=== PATIENT | female | born 1940 | race Caucasian/White ===

== ENCOUNTER 2024-07-24 18:31 | Inpatient (IN) | payer MEDICARE ==
--- NOTE | 2024-07-24 18:53 | ED ---
Weakness HPI - General Source: patient, family, RN notes reviewed <Liseth Dickinson - Last Filed: 07/24/24 18:51> <Gio Mancilla - Last Filed: 07/25/24 21:45> - General Stated complaint: Fall,AMS Time Seen by Provider: 07/24/24 18:49 - History of Present Illness Initial comments: Quick [id number] female presents emergency department By Her Daughter and Chief Complaint of Weakness. Family States That Patient Has Been Increasingly Weak over the past Few Weeks and Has Been Experiencing Multiple Falls. Currently, Patient Is Denying Symptoms of Chest Pain, Shortness of Michelle th, Difficulty Breathing, Abdominal Pain, Headaches, Blurry or Double Vision, urinary or bowel habit changes. (Liseth Dickinson) 84-year-old female presenting for evaluation for generalized weakness. The patient's daughter and are concerned that the patient has been having repeated falls at home. They state that at this point she is so weak she cannot get herself up off the floor. Patient is unsure if she hit her head with her recent falls. No blood thinners or loss of consciousness. Denies chest pain, difficulty breathing, abdominal pain, headache, vision or hearing changes, numbness, tingling. (Gio Mancilla) - Related Data Home Medications Medication Instructions Recorded Confirmed Levothyroxine Sodium [Synthroid] 25 mcg PO DAILY 07/25/24 07/25/24 Liothyronine Sodium [Cytomel] 5 mcg PO DAILY 07/25/24 07/25/24 amLODIPine [Norvasc] 5 mg PO DAILY 07/25/24 07/25/24 Allergies Allergy/AdvReac Type Severity Reaction Status Date / Time sertraline [From Zoloft] Allergy Hallucinati Verified 07/25/24 09:01 ons Review of Systems ROS Other: All systems not noted in ROS Statement are negative. <Liseth Dickinson - Last Filed: 07/24/24 18:51> ROS Other: All systems not noted in ROS Statement are negative. <Gio Mancilla - Last Filed: 07/25/24 21:45> ROS Statement: Those systems with pertinent positive or pertinent negative responses have been documented in the HPI. General Exam <Liseth Dickinson - Last Filed: 09/13/24 18:51> Limitations: no limitations General appearance: alert, in no apparent distress Head exam: Present: atraumatic, normocephalic Eye exam: Present: normal appearance, EOMI Neck exam: Present: normal inspection. Absent: meningismus Respiratory exam: Present: normal lung sounds bilaterally. Absent: respiratory distress, wheezes, rales, rhonchi, stridor Cardiovascular Exam: Present: regular rate, normal rhythm, normal heart sounds. Absent: systolic murmur, diastolic murmur, rubs, gallop, clicks Neurological exam: Present: alert, oriented X3 Psychiatric exam: Present: normal affect, normal mood Skin exam: Present: warm, dry <Gio Mancilla - Last Filed: 07/25/24 21:45> - General Exam Comments Initial Comments: Visual Physical Exam Vital signs reviewed General: Well-appearing, nontoxic, no acute distress. Head: Normocephalic, atraumatic Eyes: PERRLA, EOMI ENT: Airway patent Chest: Nonlabored breathing Skin: No visual rash, normal skin tone Neuro: Alert and oriented 3 Musculoskeletal: No gross abnormalities (iLseth Dickinson) Course Vital Signs 07/24/24 07/24/24 07/24/24 18:58 19:22 22:02 Temperature 98.9 F Pulse Rate 94 90 94 Respiratory 16 18 18 Rate Blood Pressure 156/75 178/107 156/96 O2 Sat by Pulse 99 96 97 Oximetry 07/25/24 07/25/24 07/25/24 01:02 04:26 06:00 Temperature Pulse Rate 89 89 79 Respiratory 16 18 16 Rate Blood Pressure 160/78 162/81 153/73 O2 Sat by Pulse 97 96 95 Oximetry 07/25/24 07/25/24 07/25/24 08:00 09:00 13:12 Temperature 98.9 F Pulse Rate 87 67 59 L Respiratory 16 16 Rate Blood Pressure 157/83 150/70 129/70 O2 Sat by Pulse 97 98 98 Oximetry Medical Decision Making <Liseth Dickinson - Last Filed: 07/24/24 18:51> - Lab Data Result diagrams: 07/24/24 19:13 07/24/24 19:13 <Gio Mancilla - Last Filed: 07/25/24 21:45> - Medical Decision Making I completed the quick note portion of this chart signed Liseth Dickinson PA-C (Liseth Dickinson) Was pt. sent in by a medical professional or institution (ROSALIA Fitzpatrick, PUBLIC POLICY ANALYST, urgent care, hospital, or prison...) When possible be specific @ -No Did you speak to anyone other than the patient for history (EMS, parent, family, police, friend...)? What history was obtained from this source @ -No Did you review nursing and triage notes (agree or disagree)? Why? @ -I reviewed and agree with nursing and triage notes Were old charts reviewed (outside hosp., previous admission, EMS record, old EKG, old radiological studies, urgent care reports/EKG's, prison records)? Report findings @ -No old charts were reviewed Differential Diagnosis (chest pain, altered mental status, abdominal pain women, abdominal pain men, vaginal bleeding, weakness, fever, dyspnea, syncope, headache, dizziness, GI bleed, back pain, seizure, CVA, palpatations, mental health, musculoskeletal)? @ -MDM Differential Weakness: Hypoglycemia, shock, sepsis, hyponatremia, anemia, infection, FL, ETOH, adverse medicine reaction, overdose, stroke. ... This is not meant to be an all- inclusive list EKG interpreted by me (3pts min.). @ -EKG shows sinus rhythm with first-degree AV block. Ventricular rate 87. ND interval 216. QRS 81. QT 346. QTc 390. X-rays interpreted by me (1pt min.). @ -Chest x-ray report reads right lower lung airspace disease. However by my interpretation there does not appear to be any acute process. Comparison with old EKG shows no acute changes. CT interpreted by me (1pt min.). @ -CT shows no acute intracranial process. Nonspecific white matter changes likely secondary to chronic small vessel ischemic disease U/S interpreted by me (1pt. min.). @ -None done What testing was considered but not performed or refused? (CT, X-rays, U/S, labs)? Why? @ -None What meds were considered but not given or refused? Why? @ -None Did you discuss the management of the patient with other professionals (professionals i.e. ROSALIA Fitzpatrick, PUBLIC POLICY ANALYST, lab, RT, psych nurse, high school social science teacher, aerospace control and warning systems, teacher, water resources technical officer, family preservation caseworker)? Give summary @ -I spoke with Roberto Garcia from [facility] who accepts admission Was smoking cessation discussed for >3mins.? @ -No Was critical care preformed (if so, how long)? @ -No Were there social determinants of health that impacted care today? How? (Homelessness, low income, unemployed, alcoholism, drug addiction, transportation, low edu. Level, literacy, decrease access to med. care, fdc, rehab)? @ -No Was there de-escalation of care discussed even if they declined (Discuss DNR or withdrawal of care, Hospice)? DNR status @ -No What co-morbidities impacted this encounter? (DM, HTN, Smoking, COPD, CAD, Ca ncer, CVA, ARF, Chemo, Hep., AIDS, mental health diagnosis, sleep apnea, morbid obesity)? @ -None Was patient admitted / discharged? Hospital course, mention meds given and route, prescriptions, significant lab abnormalities, going to OR and other pertinent info. @ -84-year-old female brought in by her family with generalized weakness and repeated falls. History and physical examination are conducted. No leukocytosis or anemia. Signs of dehydration with sodium 134 lactic acid 2.1 BUN 23. Patient is receiving IV fluids. Initial potassium is 5.3, however the specimen is hemolyzed. Urine shows small blood with [address] of the brain. Chest x-ray shows no acute process on my interpretation. Lengthy discussion was had with the family. Family is concerned with the patient's seemingly declining strength. They are concerned about her repeated falls and do not feel safe bringing her home today. They are agreeable with admission for placement. Patient is agreeable to this plan. I discussed this case with my attending Dr. Jackson Undiagnosed new problem with uncertain prognosis? @ -No Drug Therapy requiring intensive monitoring for toxicity (Heparin, Nitro, Insulin, Cardizem)? @ -No Were any procedures done? @ -No Diagnosis/symptom? @ -Generalized weakness, repeated falls Acute, or Chronic, or Acute on Chronic? @ -Acute Uncomplicated (without systemic symptoms) or Complicated (systemic symptoms)? @ -Complicated Side effects of treatment? @ -No Exacerbation, Progression, or Severe Exacerbation? @ -No Poses a threat to life or bodily function? How? (Chest pain, USA, FL, pneumonia, PE, COPD, DKA, ARF, appy, cholecystitis, CVA, Diverticulitis, Homicidal, Suicidal, threat to staff... and all critical care pts) @ -Yes (Gio Mancilla) - Lab Data Lab Results 07/24/24 07/24/24 07/24/24 Range/Units 19:13 19:13 19:13 WBC 8.2 (3.8-10.6) k/uL RBC 4.46 (3.80-5.40) m/uL Hgb 14.4 (11.4-16.0) gm/dL Hct 43.3 (34.0-46.0) % MCV 97.1 (80.0-100.0) fL MCH 32.3 (25.0-35.0) pg MCHC 33.2 (31.0-37.0) g/dL RDW 11.9 (11.5-15.5) % Plt Count 243 (150-450) k/uL MPV 7.5 Neutrophils % 72 % Lymphocytes % 15 % Monocytes % 9 % Eosinophils % 1 % Basophils % 1 % Neutrophils # 5.9 (1.3-7.7) k/uL Lymphocytes # 1.2 (1.0-4.8) k/uL Monocytes # 0.8 (0-1.0) k/uL Eosinophils # 0.1 (0-0.7) k/uL Basophils # 0.1 (0-0.2) k/uL PT 10.6 (10.0-12.5) sec INR 1.0 (<1.2) APTT 24.8 (22.0-30.0) sec Sodium 134 L (137-145) mmol/L Potassium 5.3 H (3.5-5.1) mmol/L Chloride 101 (98-107) mmol/L Carbon Dioxide 21 L (22-30) mmol/L Anion Gap 12 mmol/L BUN 23 H (7-17) mg/dL Creatinine 0.59 (0.52-1.04) mg/dL Est GFR (CKD-EPI)AfAm >90 (>60 ml/min/1.73 sqM) Est GFR (CKD-EPI)NonAf 86 (>60 ml/min/1.73 sqM) Glucose 120 H (74-99) mg/dL Lactic Ac Sepsis Rflx Plasma Lactic Acid Jackson (0.7-2.0) mmol/L Calcium 10.2 (8.4-10.2) mg/dL Magnesium 1.8 (1.6-2.3) mg/dL Total Bilirubin 0.8 (0.2-1.3) mg/dL AST 60 H (14-36) U/L ALT 27 (4-34) U/L Alkaline Phosphatase 90 (38-126) U/L Troponin I (0.000-0.034) ng/mL NT-Pro-B Natriuret Pep 340 pg/mL Total Protein 6.9 (6.3-8.2) g/dL Albumin 4.3 (3.5-5.0) g/dL TSH 1.190 (0.465-4.680) mIU/L Urine Color Urine Appearance (Clear) Urine pH (5.0-8.0) Ur Specific [place] (1.001-1.035) Urine Protein (Negative) Urine Glucose (UA) (Negative) Urine Ketones (Negative) Urine Blood (Negative) Urine Nitrite (Negative) Urine Bilirubin (Negative) Urine Urobilinogen (<2.0) mg/dL Ur Leukocyte Esterase (Negative) Urine RBC (0-5) /hpf Urine WBC (0-5) /hpf Hyaline Casts (0-2) /lpf Urine Mucus (None) /hpf 07/24/24 07/24/24 07/24/24 Range/Units 19:13 19:13 20:35 WBC (3.8-10.6) k/uL RBC (3.80-5.40) m/uL Hgb (11.4-16.0) gm/dL Hct (34.0-46.0) % MCV (80.0-100.0) fL MCH (25.0-35.0) pg MCHC (31.0-37.0) g/dL RDW (11.5-15.5) % Plt Count (150-450) k/uL MPV Neutrophils % % Lymphocytes % % Monocytes % % Eosinophils % % Basophils % % Neutrophils # (1.3-7.7) k/uL Lymphocytes # (1.0-4.8) k/uL Monocytes # (0-1.0) k/uL Eosinophils # (0-0.7) k/uL Basophils # (0-0.2) k/uL PT (10.0-12.5) sec INR (<1.2) APTT (22.0-30.0) sec Sodium (137-145) mmol/L Potassium (3.5-5.1) mmol/L Chloride (98-107) mmol/L Carbon Dioxide (22-30) mmol/L Anion Gap mmol/L BUN (7-17) mg/dL Creatinine (0.52-1.04) mg/dL Est GFR (CKD-EPI)AfAm (>60 ml/min/1.73 sqM) Est GFR (CKD-EPI)NonAf (>60 ml/min/1.73 sqM) Glucose (74-99) mg/dL Lactic Ac Sepsis Rflx Y Plasma Lactic Acid Jackson 2.1 H* (0.7-2.0) mmol/L Calcium (8.4-10.2) mg/dL Magnesium (1.6-2.3) mg/dL Total Bilirubin (0.2-1.3) mg/dL AST (14-36) U/L ALT (4-34) U/L Alkaline Phosphatase (38-126) U/L Troponin I <0.012 (0.000-0.034) ng/mL NT-Pro-B Natriuret Pep pg/mL Total Protein (6.3-8.2) g/dL Albumin (3.5-5.0) g/dL TSH (0.465-4.680) mIU/L Urine Color Urine Appearance (Clear) Urine pH (5.0-8.0) Ur Specific [place] (1.001-1.035) Urine Protein (Negative) Urine Glucose (UA) (Negative) Urine Ketones (Negative) Urine Blood (Negative) Urine Nitrite (Negative) Urine Bilirubin (Negative) Urine Urobilinogen (<2.0) mg/dL Ur Leukocyte Esterase (Negative) Urine RBC (0-5) /hpf Urine WBC (0-5) /hpf Hyaline Casts (0-2) /lpf Urine Mucus (None) /hpf 07/24/24 07/24/24 Range/Units 22:28 23:31 WBC (3.8-10.6) k/uL RBC (3.80-5.40) m/uL Hgb (11.4-16.0) gm/dL Hct (34.0-46.0) % MCV (80.0-100.0) fL MCH (25.0-35.0) pg MCHC (31.0-37.0) g/dL RDW (11.5-15.5) % Plt Count (150-450) k/uL MPV Neutrophils % % Lymphocytes % % Monocytes % % Eosinophils % % Basophils % % Neutrophils # (1.3-7.7) k/uL Lymphocytes # (1.0-4.8) k/uL Monocytes # (0-1.0) k/uL Eosinophils # (0-0.7) k/uL Basophils # (0-0.2) k/uL PT (10.0-12.5) sec INR (<1.2) APTT (22.0-30.0) sec Sodium (137-145) mmol/L Potassium (3.5-5.1) mmol/L Chloride (98-107) mmol/L Carbon Dioxide (22-30) mmol/L Anion Gap mmol/L BUN (7-17) mg/dL Creatinine (0.52-1.04) mg/dL Est GFR (CKD-EPI)AfAm (>60 ml/min/1.73 sqM) Est GFR (CKD-EPI)NonAf (>60 ml/min/1.73 sqM) Glucose (74-99) mg/dL Lactic Ac Sepsis Rflx Plasma Lactic Acid Jackson 1.1 (0.7-2.0) mmol/L Calcium (8.4-10.2) mg/dL Magnesium (1.6-2.3) mg/dL Total Bilirubin (0.2-1.3) mg/dL AST (14-36) U/L ALT (4-34) U/L Alkaline Phosphatase (38-126) U/L Troponin I (0.000-0.034) ng/mL NT-Pro-B Natriuret Pep pg/mL Total Protein (6.3-8.2) g/dL Albumin (3.5-5.0) g/dL TSH (0.465-4.680) mIU/L Urine Color Light Yellow Urine Appearance Clear (Clear) Urine pH 6.0 (5.0-8.0) Ur Specific [place] 1.019 (1.001-1.035) Urine Protein Negative (Negative) Urine Glucose (UA) Negative (Negative) Urine Ketones Negative (Negative) Urine Blood Small H (Negative) Urine Nitrite Negative (Negative) Urine Bilirubin Negative (Negative) Urine Urobilinogen <2.0 (<2.0) mg/dL Ur Leukocyte Esterase Negative (Negative) Urine RBC 10 H (0-5) /hpf Urine WBC 2 (0-5) /hpf Hyaline Casts 2 (0-2) /lpf Urine Mucus Rare H (None) /hpf Disposition <Liseth Dickinson - Last Filed: 07/24/24 18:51> Time of Disposition: 23:50 <Gio Mancilla - Last Filed: 07/25/24 21:45> Clinical Impression: Generalized weakness, Frequent falls Disposition: ADMITTED IP TO THIS HOSP Condition: Fair
[2024-07-24 19:47] LABS: Basophils # (A) 0.1 k/uL (0-0.2); Basophils % (A) 1 %; Eosinophils # (A) 0.1 k/uL (0-0.7); Eosinophils % (A) 1 %; HCT 43.3 % (34.0-46.0); HGB 14.4 gm/dL (11.4-16.0); Lymphocytes # (A) 1.2 k/uL (1.0-4.8); Lymphocytes % (A) 15 %; MCH 32.3 pg (25.0-35.0); MCHC 33.2 g/dL (31.0-37.0); MCV 97.1 fL (80.0-100.0); Mean Platelet Volume 7.5; Monocytes # (A) 0.8 k/uL (0-1.0); Monocytes % (A) 9 %; Neutrophils # (A) 5.9 k/uL (1.3-7.7); Neutrophils % (A) 72 %; Platelet Count 243 k/uL (150-450); RBC 4.46 m/uL (3.80-5.40); RDW 11.9 % (11.5-15.5); WBC 8.2 k/uL (3.8-10.6)
[2024-07-24 20:07] LABS: ALT 27 U/L (4-34); African American GFR (CKD) >90 (>60 ml/min/1.73 sqM); Albumin 4.3 g/dL (3.5-5.0); Anion Gap 12 mmol/L; Blood Urea Nitrogen 23 mg/dL (7-17); Calcium 10.2 mg/dL (8.4-10.2); Carbon Dioxide 21 mmol/L (22-30); Chloride 101 mmol/L (98-107); Glucose 120 mg/dL (74-99); Non-African American GFR(CKD) 86 (>60 ml/min/1.73 sqM); Sodium 134 mmol/L (137-145); Total Bilirubin 0.8 mg/dL (0.2-1.3)
[2024-07-24 20:08] LABS: AST 60 U/L (14-36); Alkaline Phosphatase 90 U/L (38-126); Magnesium 1.8 mg/dL (1.6-2.3); Potassium 5.3 mmol/L (3.5-5.1); Total Protein 6.9 g/dL (6.3-8.2)
[2024-07-24 20:09] LABS: Partial Thromboplastin Time 24.8 sec (22.0-30.0); Prothrombin Time 10.6 sec (10.0-12.5)
[2024-07-24 20:12] LABS: NT-Pro-B-Type Natriuretic Pept 340 pg/mL
--- NOTE | 2024-07-24 21:21 | CT ---
EXAMINATION TYPE: CT brain wo con CT DLP: 2293.4 mGycm, Automated exposure control for dose reduction was used. DATE OF EXAM: 07/24/2024 9:04 PM COMPARISON: None. CLINICAL INDICATION:Female, 84 years old with history of falls, multiple episode of falling. unsteady balance with ataxia for 3 days. TECHNIQUE: Brain: Axial CT images of the brain were obtained with coronal and sagittal reformats created and rev iewed. Contrast used: None. Oral contrast used: None. FINDINGS: Brain: Extra-axial spaces: No abnormal extra-axial fluid collections. Ventricular system: Dilatation in proportion to cerebral atrophy. Cerebral parenchyma: Cerebral atrophy. No acute intraparenchymal hemorrhage or mass effect. The briceño -white junction is well differentiated. Scattered hypoattenuating areas are seen within the white mat ter. Cerebellum: Unremarkable. Mass effect: No evidence of midline shift. Intracranial vasculature: Atherosclerotic calcifications of the intracranial vessels. Soft tissues: Normal. Calvarium/osseous structures: No depressed skull fracture. Paranasal sinuses and mastoid air cells: Clear Visualized orbits: Bilateral aphakia IMPRESSION: 1. No acute intracranial process. 2. Nonspecific white matter changes, likely secondary to chronic small vessel ischemic disease.
--- NOTE | 2024-07-24 21:59 | XR ---
EXAMINATION TYPE: XR chest 2V DATE OF EXAM: 07/24/2024 8:37 PM CLINICAL INDICATION:Female, 84 years old with history of ataxia COMPARISON: Chest radiograph 12/03/2022 TECHNIQUE: XR chest 2V Frontal view of the chest. FINDINGS: The lungs are hyperinflated. There are some patchy airspace opacity seen within the right mid and low er lung. Coarse senescent changes are seen bilaterally. No pneumothorax. The cardiomediastinal silhou ette is within normal limits. No acute osseous abnormalities. IMPRESSION: Right lower lung airspace disease.
[2024-07-24 22:51] LABS: Appearance,Urine Clear (Clear); Bilirubin,Urine Negative (Negative); Blood,Urine Small (Negative); Color,Urine Light Yellow; Glucose,Urine (UA) Negative (Negative); Hyaline Casts,Urine 2 /lpf (0-2); Ketones,Urine Negative (Negative); Leukocyte Esterase,Urine Negative (Negative); Mucus,Urine Rare /hpf; Nitrite,Urine Negative (Negative); Protein,Urine Negative (Negative); RBC,Urine 10 /hpf (0-5); Specific Gravity,Urine 1.019 (1.001-1.035); Urobilinogen,Urine <2.0 mg/dL (<2.0); WBC,Urine 2 /hpf (0-5)
[2024-07-24] MEDS ORDERED: NALOXONE 0.4 MG/ML 1 ML VIAL IV PRN (23:47)
[2024-07-25] MEDS: SODIUM CHLORIDE 0.9% 1,000 ML IV STA
[2024-07-25] MEDS: SODIUM CHLORIDE 0.9% 1,000 ML IV SCH (04:00)
[2024-07-25] MEDS: amLODIPine 5 MG TAB PO SCH (12:50)
[2024-07-25] MEDS: LEVOTHYROXINE 25 MCG TAB PO SCH (12:50)
--- NOTE | 2024-07-25 16:39 | P.HPIM ---
History of Present Illness H&P Date: 07/25/24 History of present illness: 84-year-old female with past medical history significant for hypertension on Norvasc, hypothyroidism on Synthroid who was brought to the ER for generalized weakness, recurrent falls. Patient daughter and were concerned that patient was having recurrent falls at home. Patient reported that she was feeling dizzy, was unsure if she passed out. was concerned that she might have passed during 1 of those falls. Patient believes that she started to have more dizziness after patient was started on a new medication, but has been to reported that patient has not started to take the new medication yet. Patient unsure if she hit her head. Patient denied any fever, chills, productive cough, sore throat, shortness of breath, chest pain, palpitation, nausea vomiting diarrhea constipation abdominal pain dysuria urgency frequency weakness or numbness of extremities. Patient and reported poor appetite, decreased p.o. intake. In the ED patient was afebrile, heart rate 94, respiratory rate 16, blood pressure 56/75, saturating 99% on room air. CBC was unremarkable. INR 1.0. BMP showed sodium 134, potassium 5.3, BUN 23, creatinine 0.59, GFR 86. Glucose 120. Lactate initially was 2.1 came down to 1.1 after IV fluids. AST 60, ALT 27, normal bilirubin and alkaline phosphatase. Troponin negative. NT proBNP 340. UA was unremarkable. CT head negative for acute process, showed nonspecific white matter changes likely secondary to chronic small vessel ischemic disease. EKG showed normal sinus rhythm with first-degree AV block, low QRS voltage in precordial leads. REVIEW OF SYSTEMS: CONSTITUTIONAL: Malaise, poor appetite. HEENT: No recent visual problems or hearing problems. Denied any sore throat. CARDIOVASCULAR: No chest pain, orthopnea, PND, no palpitations, no syncope. PULMONARY: No shortness of breath, no cough, no hemoptysis. GASTROINTESTINAL: No diarrhea, no nausea, no vomiting, no abdominal pain. NEUROLOGICAL: No headaches, no weakness, no numbness. HEMATOLOGICAL: Denies any bleeding or petechiae. GENITOURINARY: Denies any burning micturition, frequency, or urgency. MUSCULOSKELETAL/RHEUMATOLOGICAL: Denies any joint pain, swelling, or any muscle pain. ENDOCRINE: Denies any polyuria or polydipsia. The rest of the 14-point review of systems is negative. PHYSICAL EXAMINATION: GENERAL: The patient is A&O x3, NAD HEENT: EOMI, Sclerae anicteric, dry mucous membranes Neck: Supple, Non tender, No JVD PULMONARY: Equal breath souds B/L, No wheezing, No crackles. CARDIOVASCULAR: S1, S2 present. No murmurs, rubs, or gallops. ABDOMEN: Soft, nontender, nondistended, normoactive bowel sounds. No guarding or rebound tenderness. MUSCULOSKELETAL: No edema, No cyanosis. No clubbing. Normal ROM. Intact peripheral pulses. EXTREMITIES: No cyanosis, clubbing, or pedal edema. NEUROLOGICAL: CN 2-12 grossly intact. No FND Assessment and plan: Recurrent falls: Suspected syncope: Patient brought in for recurrent falls at home. concerned that patient might have had a syncopal episode during [address] negative for acute process. Level unremarkable. Concern for dehydration Continue IV fluids Monitor vitals Start Norvasc Echocardiogram Cardiology consult Fall precautions-PT/OT consult Hypertension: Resume Norvasc Check orthostats DVT prophylaxis Subcutaneous heparin Monitor vital signs and labs Continue telemetry monitoring Labs and medication were reviewed. Continue same treatment. Resume home medication. Further recommendations as per clinical course of the patient Dictation was produced using [employer] dictation software. please excuse any grammatical, word or spelling errors. Past Medical History Past Medical History: Hyperlipidemia, Hypertension Additional Past Medical History / Comment(s): sarcoidosis History of Any Multi-Drug Resistant Organisms: None Reported Past Surgical History: Joint Replacement, Orthopedic Surgery Smoking Status: Never smoker Past Alcohol Use History: None Reported Past Drug Use History: None Reported Medications and Allergies Home Medications Medication Instructions Recorded Confirmed Type Levothyroxine Sodium [Synthroid] 25 mcg PO DAILY 07/25/24 07/25/24 History Liothyronine Sodium [Cytomel] 5 mcg PO DAILY 07/25/24 07/25/24 History amLODIPine [Norvasc] 5 mg PO DAILY 07/25/24 07/25/24 History Allergies Allergy/AdvReac Type Severity Reaction Status Date / Time sertraline [From Zoloft] Allergy Hallucinati Verified 07/25/24 09:01 ons Physical Exam Vitals: Vital Signs Temp Pulse Pulse Resp BP BP Pulse Ox 07/25/24 14:39 76 18 07/25/24 14:21 97.9 F 76 18 162/85 98 07/25/24 13:12 59 L 129/70 98 07/25/24 09:00 67 16 150/70 98 07/25/24 08:00 98.9 F 87 16 157/83 97 07/25/24 06:00 79 16 153/73 95 07/25/24 04:26 89 18 162/81 96 07/25/24 01:02 89 16 160/78 97 07/24/24 22:02 94 18 156/96 97 07/24/24 19:22 90 18 178/107 96 07/24/24 18:58 98.9 F 94 16 156/75 99 Intake and Output 07/25/24 07/25/24 07/25/24 06:59 14:59 22:59 Other: Voiding Method External Catheter Weight 65.771 kg Results CBC & Chem 7: 07/24/24 19:13 07/24/24 19:13 Labs: Abnormal Lab Results - Last 24 Hours (Table) 07/24/24 07/24/24 07/24/24 Range/Units 19:13 19:13 22:28 Sodium 134 L (137-145) mmol/L Potassium 5.3 H (3.5-5.1) mmol/L Carbon Dioxide 21 L (22-30) mmol/L BUN 23 H (7-17) mg/dL Glucose 120 H (74-99) mg/dL Plasma Lactic Acid Jackson 2.1 H* (0.7-2.0) mmol/L AST 60 H (14-36) U/L Urine Blood Small H (Negative) Urine RBC 10 H (0-5) /hpf Urine Mucus Rare H (None) /hpf Thrombosis Risk Factor Assmnt - Choose All That Apply Any of the Below Risk Factors Present?: No Other Risk Factors: Yes Each Risk Factor Represents 3 Points: Age 75 years or older Other congenital or acquired thrombophilia - If yes, enter type in comment: No Thrombosis Risk Factor Assessment Total Risk Factor Score: 3 Thrombosis Risk Factor Assessment Level: Moderate Risk
--- NOTE | 2024-07-25 17:33 | P.CNNES ---
History of Present Illness Consult date: 07/25/24 Requesting physician: Gio Mancilla Reason for Consult: Frequent falls History of Present Illness: Patient is a 84-year-old right-handed female came to the hospital, yesterday at 6:31 PM for generalized weakness and frequent falls. Patient is a good historian, states that she was started on a new prescription for mood, perhaps sertraline, and after taking 1 dose, she was walking, felt dizzy and fell. She was going up steps, and after she took the first step, she lost balance and fell backwards. The next day she took the second tablet and shortly after again became dizzy and fell. Patient states that she was reaching for the cabinet and fell into the cabinet, smashed the door into the cabinet. She did not pass out. She stopped the medication, and has not had any more falls. Both of these fal ls happened about 2 weeks ago. Her family believes that she has "no strength" and she does not stand up straight. Therefore they brought her to the hospital. Patient denies any stroke symptoms. Denies any history of neuropathy, any numbness or tingling in the feet. Denies diabetes, hypertension, never smoked, does not drink alcohol. At home she does not use any assistive device, lives with her . Vital signs arrival blood pressure 156/75, pulse 94 temperature 98.9. Blood test shows normal CBC, PT PTT, sodium 134 potassium 5.3 (specimen hemolyzed), BUN is 23 creatinine 0.59. Hepatic panel with AST 60, ALT 27. Troponin negative. TSH is normal. UA negative. EKG showed sinus rhythm with first- degree AV block. Chest x-ray showed right lower lobe lung airspace disease. CT head revealed no acute intracranial process. Nonspecific white matter changes, likely secondary to chronic small vessel ischemic disease. I personally reviewed CT head, agree with the findings. Home medications include amlodipine 5 mg, Cytomel, Synthroid. Patient denies any fever or chills, any cough or phlegm, any chest pain. No urine issues. No burning or dysuria. Patient does have droopy eyes for last 10 years. However she denies any diplopia, any slurred speech, dyspnea or dysphagia. Review of Systems As mentioned in HPI. All pertinent positives and negatives mentioned in HPI. Past Medical History Past Medical History: Hyperlipidemia, Hypertension Additional Past Medical History / Comment(s): sarcoidosis History of Any Multi-Drug Resistant Organisms: None Reported Past Surgical History: Joint Replacement, Orthopedic Surgery Smoking Status: Never smoker Past Alcohol Use History: None Reported Past Drug Use History: None Reported Medications and Allergies Home Medications Medication Instructions Recorded Confirmed Type Levothyroxine Sodium [Synthroid] 25 mcg PO DAILY 07/25/24 07/25/24 History Liothyronine Sodium [Cytomel] 5 mcg PO DAILY 07/25/24 07/25/24 History amLODIPine [Norvasc] 5 mg PO DAILY 07/25/24 07/25/24 History Allergies Allergy/AdvReac Type Severity Reaction Status Date / Time sertraline [From Zoloft] Allergy Hallucinati Verified 07/25/24 09:01 ons Physical Examination - Vital Signs Vital Signs: Vital Signs Temp Pulse Pulse Resp BP BP Pulse Ox 07/25/24 14:21 97.9 F 76 18 162/85 98 07/25/24 13:12 59 L 129/70 98 07/25/24 09:00 67 16 150/70 98 07/25/24 08:00 98.9 F 87 16 157/83 97 07/25/24 06:00 79 16 153/73 95 07/25/24 04:26 89 18 162/81 96 07/25/24 01:02 89 16 160/78 97 07/24/24 22:02 94 18 156/96 97 07/24/24 19:22 90 18 178/107 96 07/24/24 18:58 98.9 F 94 16 156/75 99 Intake and Output 07/25/24 07/25/24 07/25/24 06:59 14:59 22:59 Other: Weight 65.771 kg Patient is an elderly female, very pleasant, in no acute distress. Patient is alert awake oriented to time place and person. Patient knows it is 07/25/2024 and that she is in [facility] in [facility] in [place]. Speech and language functions are normal. Patient can name and repeat very well. No aphasia or dysarthria. Attention, concentration and fund of knowledge is adequate. On cranial nerve examination, pupils are equal, round and reacting to light, visual garcia are full on confrontation, with no neglect on double simultaneous stimulation. Extraocular muscles are intact with no nystagmus. Patient does have mild ptosis, right more than left. However this is chronic. Face is symmetric, tongue protrudes to the midline. Palatal elevation and sensation normal, hearing and shoulder shrug normal, facial sensation normal. On muscle strength testing, there is no pronator drift and the strength is normal in arms and legs distally and proximally. Right shoulder not checked because of severe arthritis. Deep tendon reflexes are symmetric 1+ at biceps, 1 brachioradialis, 1 at the knees, 2 ankles and plantars downgoing bilaterally. Sensory to touch is equal with no neglect on double simultaneous stimulation. Cerebellar function showed no ataxia for [id number] testing. No dysdiadochokinesia. No ataxia for [id number]-sk-[id number] testing on either side. Tone and bulk of muscles normal. Gait testing was attempted. However patient has Huitron's catheter, therefore she could not walk. She was able to stand without any problem. She does have issues with the right shoulder therefore difficulty lifting herself up. On general examination, there is no carotid bruit or murmur, S1-S2 audible. Chest is clear on consultation. Abdomen is soft nontender. No organomegaly, bowel sounds present. Peripheral pulses are present. No peripheral edema. Results - Laboratory Findings CBC and BMP: 07/24/24 19:13 07/24/24 19:13 Abnormal Lab Findings: Abnormal Labs 07/24/24 07/24/24 07/24/24 19:13 19:13 22:28 Sodium 134 L Potassium 5.3 H Carbon Dioxide 21 L BUN 23 H Glucose 120 H Plasma Lactic Acid Jackson 2.1 H* AST 60 H Urine Blood Small H Urine RBC 10 H Urine Mucus Rare H Assessment and Plan Assessment: * Status post fall times twice, likely due to side effect of medication. Mervat mason states that she was started on some mood stabilizer 2 weeks ago, and after taking 2 doses, she fell on 2 consecutive days after taking the medication. No subsequent falls since then. Patient's examination is nonfocal. Her muscle strength is normal. * Right shoulder pain, likely due to arthritis. Rule out rotator cuff tear. * Hypertension * Hyperlipidemia Plan: * Patient's falls were related to adverse effect of antidepressant that she took couple weeks ago. No subsequent falls. * Patient's muscle strength appears normal, and exam is nonfocal. * Patient does have right shoulder pain, rule out rotator cuff tear. May need orthopedics surgery consultation. * Check B12, folate. TSH is normal. * PT, OT evaluate gait. * Neurology will follow. Thank you for the consult.
[2024-07-25] MEDS: HEPARIN SODIUM,PORCINE 5,000 UNIT/ML 1 ML VIAL SQ SCH (20:06)
[2024-07-26 09:29] LABS: Carbon Dioxide 21.5 mmol/L (21.6-31.8); Chloride 103 mmol/L (96-109); Glucose 96 mg/dL (70-110); Magnesium 1.7 mg/dL (1.5-2.4); Potassium 4.2 mmol/L (3.5-5.5); Sodium 135 mmol/L (135-145)
[2024-07-26 09:31] LABS: Basophils # (A) 0.07 X 10*3/uL (0.00-0.10); Basophils % (A) 0.9 %; Eosinophils # (A) 0.38 X 10*3/uL (0.04-0.35); Eosinophils % (A) 5.1 %; HCT 40.8 % (37.2-46.3); HGB 13.9 g/dL (12.0-15.0); Lymphocytes # (A) 1.92 X 10*3/uL (0.90-5.00); Lymphocytes % (A) 25.9 %; MCH 32.9 pg (27.0-32.0); MCHC 34.1 g/dL (32.0-37.0); MCV 96.7 FL (80.0-97.0); Mean Platelet Volume 10.2 FL (9.5-12.2); Monocytes # (A) 1.16 X 10*3/uL (0.20-1.00); Monocytes % (A) 15.6 %; NRBC Per 100 WBC 0 X 10*3/uL (0.00-0.01); Neutrophils # (A) 3.88 X 10*3/uL (1.80-7.70); Neutrophils % (A) 52.4 %; Platelet Count 209 X 10*3/uL (140-440); RBC 4.22 X 10*6/uL (4.10-5.20); WBC 7.42 X 10*3/uL (4.50-10.00)
--- NOTE | 2024-07-26 10:19 | XR ---
EXAMINATION TYPE: XR shoulder complete 3 views RT DATE OF EXAM: 07/26/2024 Comparison: None Clinical History: 84-year-old female with Right shoulder pain, fall Findings: Severe degenerative changes clinical joint with extensive irregularity of the subchondral bone, subch ondral sclerosis, articular surface remodeling and erosion, and marginal spurring. There is truncatio n of the acromion probably due to chronic degenerative change of the AC joint as well. No acute fract ure or dislocation. Impression: 1. Severe, end-stage glenohumeral joint OA with extensive irregularity of the articular surface and a ssociated chronic [id number]-pq-[id number] remodeling/erosion. 2. Some truncation of the AC joint probably on a chronic degenerative basis as well. [facility], , 07/26/2024 10:16 AM
--- NOTE | 2024-07-26 11:23 | P.CRDCN ---
History of Present Illness Consult date: 07/26/24 History of present illness: The patient is a pleasant 82-year-old female patient with a past medical history significant for hypertension was brought by her family to the hospital because of progressive weakness. The patient stated that for the last several weeks she has been feeling overall weak but she has not been eating and drinking well. No specific symptoms of any chest pain or chest discomfort or shortness of breath or dizziness or lightheadedness or any presyncope or syncope she fell but she did not lose her consciousness and clearly she did not have any syncope. For that reason her family brought her to the emergency department for further evaluation where she underwent an EKG and that showed sinus mechanism with poor R wave progression/Q waves anteriorly and the blood work with the first set of troponin came in to be unremarkable. Chest x-ray did not show any acute abnormalities. The blood work overall including CBC and BMP came in to be unr emarkable. No history of coronary artery disease or congestive heart failure or cardiac arrhythmia. CT scan of the brain did not show any acute abnormalities as well. The physical examination is remarkable for regular rhythm with clear breathing sounds bilaterally and no carotid bruit and no edema was noted Assessment Generalized weakness and fatigue Hypertension Plan Orthostatic hypotension was ruled out Continue the current medical regimen Follow-up with the second set of serial cardiac enzymes Obtain an echocardiogram with Doppler Follow-up with the patient Past Medical History Past Medical History: Hyperlipidemia, Hypertension Additional Past Medical History / Comment(s): sarcoidosis History of Any Multi-Drug Resistant Organisms: None Reported Past Surgical History: Joint Replacement, Orthopedic Surgery Smoking Status: Never smoker Past Alcohol Use History: None Reported Past Drug Use History: None Reported Medications and Allergies Home Medications Medication Instructions Recorded Confirmed Type Levothyroxine Sodium [Synthroid] 25 mcg PO DAILY 07/25/24 07/25/24 History Liothyronine Sodium [Cytomel] 5 mcg PO DAILY 07/25/24 07/25/24 History amLODIPine [Norvasc] 5 mg PO DAILY 07/25/24 07/25/24 History Allergies Allergy/AdvReac Type Severity Reaction Status Date / Time sertraline [From Zoloft] Allergy Hallucinati Verified 07/25/24 09:01 ons Physical Exam Vitals: Vital Signs Temp Pulse Pulse Resp BP BP BP 07/26/24 10:52 116/69 07/26/24 08:00 84 16 07/26/24 07:00 97.7 F 84 16 07/26/24 02:47 98.7 F 82 16 07/25/24 19:04 97.5 F L 76 18 143/75 07/25/24 16:40 98.0 F 76 17 151/79 149/79 07/25/24 14:39 76 18 07/25/24 14:21 97.9 F 76 18 07/25/24 13:12 59 L 129/70 BP BP BP Pulse Ox 07/26/24 10:52 07/26/24 08:00 07/26/24 07:00 198/79 96 07/26/24 02:47 143/78 98 07/25/24 19:04 93 L 07/25/24 16:40 114/66 97 07/25/24 14:39 07/25/24 14:21 162/85 98 07/25/24 13:12 98 Intake and Output 07/25/24 07/26/24 07/26/24 22:59 06:59 14:59 Intake Total 118 Output Total 1100 650 Balance -1100 -532 Intake: Oral 118 Output: Urine 1100 650 Other: Voiding Method External Catheter External Catheter External Catheter # Bowel Movements 0 1 Results 07/26/24 02:50 07/26/24 02:50 CBC 07/26/24 Range/Units 02:50 WBC 7.42 (4.50-10.00) X 10*3/uL RBC 4.22 (4.10-5.20) X 10*6/uL Hgb 13.9 (12.0-15.0) g/dL Hct 40.8 (37.2-46.3) % Plt Count 209 (140-440) X 10*3/uL Comprehensive Metabolic Panel 07/26/24 Range/Units 02:50 Sodium 135 (135-145) mmol/L Potassium 4.2 (3.5-5.5) mmol/L Chloride 103 (96-109) mmol/L Carbon Dioxide 21.5 L (21.6-31.8) mmol/L BUN 18.0 (9.0-27.0) mg/dL Creatinine 0.6 (0.6-1.5) mg/dL Glucose 96 (70-110) mg/dL Calcium 9.0 (8.7-10.3) mg/dL Current Medications Generic Name Dose Route Start Last Admin Trade Name Freq PRN Reason Stop Dose Admin Amlodipine Besylate 5 mg 07/25/24 11:30 07/26/24 08:01 Amlodipine 5 Mg Tab PO 5 mg DAILY ADEOLA Administration Heparin Sodium (Porcine) 5,000 unit 07/25/24 21:00 07/26/24 08:01 Heparin Sodium,Porcine 5,000 Unit/Ml 1 Ml Vial SQ 5,000 unit Q12HR ADEOLA Administration Sodium Chloride 1,000 mls @ 75 mls/hr 07/24/24 23:45 07/26/24 03:15 Saline 0.9% IV Not Given .[id number] ADEOLA Levothyroxine Sodium 25 mcg 07/25/24 11:30 07/26/24 05:34 Levothyroxine 25 Mcg Tab PO 25 mcg DAILY@0630 ADEOLA Administration Naloxone HCl 0.2 mg 07/24/24 23:47 Naloxone 0.4 Mg/Ml 1 Ml Vial IV Q2M PRN Opioid Reversal Intake and Output 07/25/24 07/26/24 07/26/24 22:59 06:59 14:59 Intake Total 118 Output Total 1100 650 Balance -1100 -532 Intake: Oral 118 Output: Urine 1100 650 Other: Voiding Method External Catheter External Catheter External Catheter # Bowel Movements 0 1 07/26/24 02:50 07/26/24 02:50
--- NOTE | 2024-07-26 15:11 | P.PN ---
Subjective Progress Note Date: 07/26/24 Interval History: 84-year-old female with past medical history significant for hypertension on Norvasc, hypothyroidism on Synthroid who was brought to the ER for generalized weakness, recurrent falls. Patient daughter and were concerned that patient was having recurrent falls at home. Patient reported that she was feeling dizzy, was unsure if she passed out. was concerned that she might have passed during 1 of those falls. Patient believes that she started to have more dizziness after patient was started on a new medication, but has been to reported that patient has not started to take the new medication yet. Patient unsure if she hit her head. Patient denied any fever, chills, productive cough, sore throat, shortness of breath, chest pain, palpitation, nausea vomiting diarrhea constipation abdominal pain dysuria urgency frequency weakness or numbness of extremities. Patient and reported poor appetite, decreased p.o. intake. In the ED patient was afebrile, heart rate 94, respiratory rate 16, blood pressure 56/75, saturating 99% on room air. CBC was unremarkable. INR 1.0. BMP showed sodium 134, potassium 5.3, BUN 23, creatinine 0.59, GFR 86. Glucose 120. Lactate initially was 2.1 came down to 1.1 after IV fluids. AST 60, ALT 27, normal bilirubin and alkaline phosphatase. Troponin negative. NT proBNP 340. UA was unremarkable. CT head negative for acute process, showed nonspecific white matter changes likely secondary to chronic small vessel ischemic disease. EKG showed normal sinus rhythm with first-degree AV block, low QRS voltage in precordial leads. 07/26/2024--patient was seen and examined today. Patient feeling better today. Will continue monitor with orthostatics. Cardiology consulted, recommended troponin and echocardiogram. Neurology consulted and following, recommended to check B12 folate. Fall likely related to adverse effects of antidepressants per neurology. Orthopedic consulted for right shoulder pain, x-ray right shoulder showed severe end-stage glenohumeral joint osteoarthritis with extensive irregularity of the articular surface. Recurrent falls: Suspected syncope: Patient brought in for recurrent falls at home. concerned that patient might have had a syncopal episode during [address] negative for acute process. Labs unremarkable. Concern for dehydration Continue IV fluids Monitor vitals Resume Norvasc. Echocardiogram Cardiology consulted--recommend troponin echocardiogram. Troponin negative. Fall precautions-PT/OT consult Severe right shoulder osteoarthritis: Patient complains of right shoulder pain worse with movements. X-ray showed severe end-stage glenohumeral osteoarthritis Pain control Orthopedic consult Hypertension: Resume Norvasc Check orthostats DVT prophylaxis Subcutaneous heparin Monitor vital signs and labs Continue telemetry monitoring Labs and medication were reviewed. Continue same treatment. Resume home medication. Further recommendations as per clinical course of the patient PHYSICAL EXAMINATION: GENERAL: The patient is A&O x3, NAD HEENT: EOMI, Sclerae anicteric, Moist Mucous membranes Neck: Supple, Non tender, No JVD PULMONARY: Equal breath souds B/L, No wheezing, No crackles. CARDIOVASCULAR: S1, S2 present. No murmurs, rubs, or gallops. ABDOMEN: Soft, nontender, nondistended, normoactive bowel sounds. No guarding or rebound tenderness. MUSCULOSKELETAL: No edema, No cyanosis. No clubbing. Normal ROM. Intact peripheral pulses. EXTREMITIES: No cyanosis, clubbing, or pedal edema. NEUROLOGICAL: CN 2-12 grossly intact. No FND Skin: No Rash REVIEW OF SYSTEMS: CONSTITUTIONAL: No fever or chills. CARDIOVASCULAR: No chest pain, palpitations or syncope. PULMONARY: No shortness of breath, no cough, sore throat. GASTROINTESTINAL: No nausea, vomiting, diarrhea, abdominal pain. : No Dysuria, urgency, frequency. Extremities: No edema. NEUROLOGICAL: No headaches, no weakness, or numbness Dictation was produced using [employer] dictation software. please excuse any grammatical, word or spelling errors. Objective - Vital Signs Vital signs: Vital Signs Temp 97.9 F 07/26/24 14:34 Pulse 80 07/26/24 14:34 Resp 17 07/26/24 14:34 BP 126/73 07/26/24 14:34 Pulse Ox 96 07/26/24 14:34 FiO2 Intake & Output 07/25/24 07/26/24 07/26/24 18:59 06:59 18:59 Intake Total 236 Output Total 1100 650 Balance -1100 -414 Weight 65.771 kg Intake: Oral 236 Output: Urine 1100 650 Other: Voiding Method External Catheter External Catheter External Catheter # Bowel Movements 0 1 - Labs CBC & Chem 7: 07/26/24 02:50 07/26/24 02:50 Labs: Abnormal Lab Results - Last 24 Hours (Table) 07/24/24 07/24/24 07/26/24 Range/Units 19:13 19:13 02:50 MCH 32.9 H (27.0-32.0) pg Monocytes # 1.16 H (0.20-1.00) X 10*3/uL Eosinophils # 0.38 H (0.04-0.35) X 10*3/uL Carbon Dioxide (21.6-31.8) mmol/L BUN/Creatinine Ratio (12.00-20.00) Ratio Vitamin B12 3508.0 H (200.0-944.0) pg/mL Folate 38.70 H (4.40-31.00) ng/mL 07/26/24 Range/Units 02:50 MCH (27.0-32.0) pg Monocytes # (0.20-1.00) X 10*3/uL Eosinophils # (0.04-0.35) X 10*3/uL Carbon Dioxide 21.5 L (21.6-31.8) mmol/L BUN/Creatinine Ratio 30.00 H (12.00-20.00) Ratio Vitamin B12 (200.0-944.0) pg/mL Folate (4.40-31.00) ng/mL
--- NOTE | 2024-07-27 11:25 | P.CNOR ---
History of Present Illness - HPI Consult date: 07/27/24 History of present illness: This is an 84-year-old female who is admitted for frequent falls and generalized weakness. Orthopedics is consulted due to chronic right shoulder pain. Patient is seen and evaluated at bedside today. Patient states that she has had right shoulder pain for many years and denies any recent injury to the right shoulder. Patient states that she has limited motion of the right upper extremity along with occasional weakness of the right hand. Patient states that she may have had previous right shoulder surgery but this was many years ago and she does not quite recall. Patient's past medical history is significant for hypertension, hyperlipidemia and hypothyroidism. Patient denies any fever/chills, chest pain, shortness breath, abdominal pain, numbness, or tingling. Review of Systems See HPI. Past Medical History Past Medical History: Hyperlipidemia, Hypertension Additional Past Medical History / Comment(s): sarcoidosis History of Any Multi-Drug Resistant Organisms: None Reported Past Surgical History: Joint Replacement, Orthopedic Surgery Smoking Status: Never smoker Past Alcohol Use History: None Reported Past Drug Use History: None Reported Medications and Allergies Home Medications Medication Instructions Recorded Confirmed Type Levothyroxine Sodium [Synthroid] 25 mcg PO DAILY 07/25/24 07/25/24 History Liothyronine Sodium [Cytomel] 5 mcg PO DAILY 07/25/24 07/25/24 History amLODIPine [Norvasc] 5 mg PO DAILY 07/25/24 07/25/24 History Allergies Allergy/AdvReac Type Severity Reaction Status Date / Time sertraline [From Zoloft] Allergy Hallucinati Verified 07/25/24 09:01 ons Physical Examination On exam patient is resting comfortably in bed in no acute distress. Patient is alert and oriented 3. Right shoulder: There is crepitus with motion. Patient has limited active and passive elevation of the right upper extremity to less than shoulder height. There is no swelling or erythema. Skin is intact. There are several small healed surgical scars over the right shoulder. The right upper extremity is warm and well-perfused. Sensation intact. Neurovascular status and circulatory status are intact. Results An x-ray report of the right shoulder dated 07/26/2024 show: 1. Severe end-stage glenohumeral joint OA with extensive irregularity of the articular surface and associated chronic [id number] remodeling/erosion. 2. Some truncation of the AC joint probably on a chronic degenerative basis as well. - Labs Labs: H & H 07/24/24 07/26/24 Range/Units 19:13 02:50 Hgb 14.4 13.9 (11.4-16.0) gm/dL Hct 43.3 40.8 (34.0-46.0) % Coagulation 07/24/24 Range/Units 19:13 INR 1.0 (<1.2) Result Diagrams: 07/26/24 02:50 07/26/24 02:50 Assessment and Plan (1) Osteoarthritis of right shoulder Current Visit: Yes Status: Acute Code(s): M19.011 - PRIMARY OSTEOARTHRITIS, RIGHT SHOULDER SNOMED Code(s): 489015611912202 Plan: 1. X-rays are reviewed revealing severe glenohumeral arthritis of the right shoulder which is consistent with the patient's symptoms of right shoulder pain. Recommend pain control. 2. Discussed that there is no surgical intervention planned. Patient may follow-up on an outpatient basis.
--- NOTE | 2024-07-27 11:31 | MR ---
EXAMINATION TYPE: MR cspine/lspine wo con DATE OF EXAM: 07/27/2024 COMPARISON: None HISTORY: Abnormal gait, frequent falls CONTRAST: Performed utilizing 0 mL intravenous gadolinium contrast. TECHNIQUE: Multiplanar multiecho imaging on a 3.0 Uma magnet is performed through the cervical spin e. FINDINGS: The craniovertebral junction is normal. Vertebral body alignment is normal. C7-T1: Mild disc bulge has mild anterior thecal sac impression. No cord contact or spinal canal sten osis present. Neural foramen are patent. C6-7: Broad-based disc bulge is present greater into the right paracentral region. No cord contact or spinal canal stenosis present. Neural foramen are patent. C5-6: There is a large right paracentral disc bulge with moderate anterior thecal sac compression. Co rd contact with some mild cord deformity is present. Some mild spinal canal stenosis is present. Mode rate to severe bilateral foraminal narrowing due to uncovertebral joint hypertrophy. C4-5: No focal disc herniation or significant disc bulge is evident. No spinal canal stenosis is pres ent. There is some uncovertebral joint hypertrophy with narrowing of the right foramen. C3-4: No focal disc herniation or significant disc bulge is evident. No spinal canal stenosis or ivory ral foraminal stenosis is present. C2-3: No focal disc herniation or significant disc bulge is evident. No spinal canal stenosis or ivory ral foraminal stenosis is present. IMPRESSION: 1. Large right paracentral disc bulge C5-6 with moderate anterior thecal sac compression. This has co rd contact and some cord deformity. Mild spinal canal narrowing is present posterior to the disc bulg e. 2. Broad-based disc bulging present C5-6, C6-7 and C7-T1 without cord contact or spinal canal stenosi s. 3. Uncovertebral joint atrophy contributing to foraminal narrowing on the right at C4-5 and bilateral ly C5-6. EXAMINATION TYPE: MR cspine/lspine wo con DATE OF EXAM: 07/27/2024 COMPARISON: None HISTORY: Abnormal gait, frequent falls CONTRAST: 0 mL intravenous Gadavist. TECHNIQUE: Multiplanar, multisequence images of the lumbar spine were acquired. 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 Additional smaller Tarlov cysts ar e present posterior to S1. Postsurgical changes are posterior to the L4-L5 levels. Some magnetic susc eptibility artifact is present levels. Disc space narrowing is present diffusely L1-2 through L4-5. S ome mild Modic type I degenerative changes are L1-2. Some mild Modic type II degenerative changes may be present L2-3 L3-4. Vertebral body heights appear preserved. Cord terminates at the L1 level. L5-S1: No significant disc bulge or disc herniation. No spinal canal stenosis. Neural foramen are p atent. All facet hypertrophy is present.. L4-L5: No significant disc bulge or disc herniation. No spinal canal stenosis. No foraminal stenosi s. Mild facet hypertrophy is present with ligamentum flavum laxity. This has some flattening posteri or lateral thecal sac.. L3-L4: Minimal disc bulges anterior thecal sac contact. There is prominent facet hypertrophy and liga mentum flavum laxity with lateral canal stenosis. This is also contributing to some diffuse spinal ca nal narrowing. L2-L3: Broad-based disc bulge is anterior thecal sac flattening. No AP spinal canal stenosis present. Facet hypertrophy with ligamentum flavum laxity is posterior lateral thecal sac compression. No spi nal canal stenosis. No foraminal stenosis. L1-L2: Broad-based disc bulge with mild anterior thecal sac compression. No AP spinal canal stenosis is present. Mild omentum flavum laxity is present posterior lateral thecal sac compression. T12-L1: No significant disc bulge or disc herniation. No spinal canal stenosis. No foraminal stenos is. IMPRESSION: 1. Spinal canal stenosis due to facet hypertrophy is ligamentum flavum laxity and mild disc bulging L 3-4. 2. Milder spinal canal narrowing at L2-3 due to disc bulge and facet hypertrophy at L4-5 due to ligam entum flavum laxity is present. 3. Diffuse disc desiccation throughout the lumbar spine. Disc spacers present at L4-5. 4. Moderate type I degenerative changes L1-2. Some mild Modic type II degenerative changes may be pre sent L2-3 L3-4. [facility], , 07/27/2024 11:29 AM
--- NOTE | 2024-07-27 12:02 | P.PN ---
Subjective Progress Note Date: 07/26/24 Patient was seen for follow-up. Patient's was also present today. He informed me that patient has problems with balance going on for last 1 year, getting worse. She would be walking, and her right shoulder starts drooping down, and she starts veering to the right side and sometimes she falls. This happens more when she is tired. Patient's mentioned that on Saturday, 1 week ago, he found her sitting on the floor in the bedroom, as she had fell hit, and hit her head on the nightstand. Patient has very poor balance, if she bends down, she could fall. She gets dizzy and falls. He mentions that he took the antidepressant only for 2 days about 1-1/2 weeks ago, but her balance has continued to be a problem including her frequency of falls. She cannot walk on the grass, as she has no balance. When she gets down, she cannot get up. She scoots to get somewhere to get up. Otherwise she has no strength to get up. Patient's states that 1 day she was watering the joe and she fell. Patient denies any problem with urinary control or incontinence. Patient has reported numbness in the feet to her , but at present she denies it. She does have severe arthritis of the right shoulder. Patient has history of low back surgery in 2016. Objective - Vital Signs Vital signs: Vital Signs Temp 97.7 F 07/26/24 07:00 Pulse 84 07/26/24 08:00 Resp 16 07/26/24 08:00 BP 116/69 07/26/24 10:52 Pulse Ox 96 07/26/24 07:00 FiO2 Intake & Output 07/25/24 07/26/24 07/26/24 18:59 06:59 18:59 Intake Total 118 Output Total 1100 650 Balance -1100 -532 Weight 65.771 kg Intake: Oral 118 Output: Urine 1100 650 Other: Voiding Method External Catheter External Catheter External Catheter # Bowel Movements 0 1 - Exam Patient's mental status, speech and language functions are normal. Muscle strength again is normal in the arms and legs distally and proximally except right shoulder which is weak from arthritis/rotator cuff with a lot of pain. But still she has good strength in the right deltoid. Reflexes are symmetric, 1+ at the biceps, 1 brachioradialis, 1 at the ankles and plantars are downgoing bilaterally. No clonus. Sensory to touch is equal. Tone is completely normal with no rigidity. No tremors at rest. No bradykinesia. No parkinsonian feature. - Labs CBC & Chem 7: 07/26/24 02:50 07/26/24 02:50 Labs: Abnormal Lab Results - Last 24 Hours (Table) 07/24/24 07/24/24 07/26/24 Range/Units 19:13 19:13 02:50 MCH 32.9 H (27.0-32.0) pg Monocytes # 1.16 H (0.20-1.00) X 10*3/uL Eosinophils # 0.38 H (0.04-0.35) X 10*3/uL Carbon Dioxide (21.6-31.8) mmol/L BUN/Creatinine Ratio (12.00-20.00) Ratio Vitamin B12 3508.0 H (200.0-944.0) pg/mL Folate 38.70 H (4.40-31.00) ng/mL 07/26/24 Range/Units 02:50 MCH (27.0-32.0) pg Monocytes # (0.20-1.00) X 10*3/uL Eosinophils # (0.04-0.35) X 10*3/uL Carbon Dioxide 21.5 L (21.6-31.8) mmol/L BUN/Creatinine Ratio 30.00 H (12.00-20.00) Ratio Vitamin B12 (200.0-944.0) pg/mL Folate (4.40-31.00) ng/mL Assessment and Plan Assessment: * Status post fall times twice, likely due to side effect of medication. Patient states that she was started on some mood stabilizer 2 weeks ago, and after taking 2 doses, she fell on 2 consecutive days after taking the medication. No subsequent falls since then. Patient's examination is nonfocal. Her muscle strength is normal. * Chronic balance problem for 1 year, progressively getting worse (as per patient's report). Patient has frequent falls, and when she falls, cannot get up. Rule out spinal stenosis. No clinical evidence of Parkinson's. CT head showed no evidence of CVA. * Right shoulder pain, likely due to arthritis. Rule out rotator cuff tear. * Hypertension * Hyperlipidemia Plan: * Patient has chronic gait problem, with gait imbalance, and frequent falls. * Check MRI of the cervical and lumbar spine to rule out spinal stenosis. * Agree with orthopedic spine consultation for right shoulder pain/weakness. * B12 3508, folate 38.7. TSH 1.19. * PT, OT evaluate gait.
--- NOTE | 2024-07-28 03:40 | PN ---
PROGRESS NOTE DATE OF SERVICE: 07/27/2024 SUBJECTIVE: This is an 84-year-old woman, who was admitted with fall and syncope, also had an MRI done, which showed significant DJD and some cervical stenosis and disk bulging also. No chest pain. No palpitation. OBJECTIVE: VITAL SIGNS: Pulse is 80, blood pressure 140/70, orthostatic changes present, respirations 18. CHEST: A few scattered rhonchi and crackles. ABDOMEN: Soft. NERVOUS SYSTEM: Nonfocal. LABORATORY DATA: Reviewed. ASSESSMENT: 1. Recurrent falls and syncope. 2. 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 3. Severe right shoulder osteoarthritis. 4. Hypertension. 5. Orthostatic hypotension. RECOMMENDATIONS AND DISCUSSION: I recommend to continue current medications and continue symptomatic treatment. Otherwise, at this time, I would recommend repeat labs. PT/OT evaluation. Continue to check orthostatic vitals. Guarded prognosis. Further recommendations to follow. CHRISTI / YAN: [id number] /
[2024-07-28 08:35] LABS: Basophils # (A) 0.06 X 10*3/uL (0.00-0.10); Basophils % (A) 0.9 %; Eosinophils # (A) 0.41 X 10*3/uL (0.04-0.35); Eosinophils % (A) 6.1 %; HCT 41.7 % (37.2-46.3); Lymphocytes # (A) 1.65 X 10*3/uL (0.90-5.00); Lymphocytes % (A) 24.7 %; MCH 31.5 pg (27.0-32.0); MCHC 33.6 g/dL (32.0-37.0); MCV 93.7 FL (80.0-97.0); Mean Platelet Volume 9.9 FL (9.5-12.2); Monocytes # (A) 0.73 X 10*3/uL (0.20-1.00); Monocytes % (A) 10.9 %; NRBC Per 100 WBC 0 X 10*3/uL (0.00-0.01); Neutrophils # (A) 3.82 X 10*3/uL (1.80-7.70); Neutrophils % (A) 57.1 %; Platelet Count 241 X 10*3/uL (140-440); RBC 4.45 X 10*6/uL (4.10-5.20); RDW 11.9 % (11.5-14.5); WBC 6.69 X 10*3/uL (4.50-10.00)
[2024-07-28 08:56] LABS: ALT 22 U/L (8-44); AST 22 U/L (13-35); Albumin/Globulin Ratio 2.11 Ratio (1.60-3.17); Alkaline Phosphatase 107 U/L (41-126); BUN/Creat Ratio 28.67 Ratio (12.00-20.00); Blood Urea Nitrogen 17.2 mg/dL (9.0-27.0); Calcium 9.7 mg/dL (8.7-10.3); Carbon Dioxide 24.5 mmol/L (21.6-31.8); Chloride 102 mmol/L (96-109); Globulin 1.9 g/dL (1.6-3.3); Glucose 97 mg/dL (70-110); Potassium 4.1 mmol/L (3.5-5.5); Sodium 138 mmol/L (135-145); Total Bilirubin 0.3 mg/dL (0.3-1.2); Total Protein 5.9 g/dL (6.2-8.2)
--- NOTE | 2024-07-28 09:51 | CA ---
Transthoracic Echo Report Name: Kierra Zhao Age: 84 Gender: F : 1940 Exam Date: 07/27/2024 17:04 Exam Location: [facility] Ht (in): 66 Wt (lb): 145 Ordering Physician: Cristhian Romero MD Attending/Referring Phys: Log Preparer Nidia Moreno RDCS Procedure CPT: Indications: stroke Cardiac Hx: Technical Quality: Good Contrast 1: Agitated Saline Total Dose (mL): 8 Contrast 2: Total Dose (mL): MEASUREMENTS (Male / Female) Normal Values 2D ECHO LV Diastolic Diameter PLAX 4.8 cm 4.2 - 5.9 / 3.9 - 5.3 cm LV Systolic Diameter PLAX 2.9 cm IVS Diastolic Thickness 0.8 cm 0.6 - 1.0 / 0.6 - 0.9 cm LVPW Diastolic Thickness 1.0 cm 0.6 - 1.0 / 0.6 - 0.9 cm LV Relative Wall Thickness 0.4 RV Internal Dim ED PLAX 2.7 cm LA Systolic Diameter LX 3.0 cm 3.0 - 4.0 / 2.7 - 3.8 cm LV Diastolic Volume MOD 4C 93.8 cm??? LV Systolic Volume MOD 4C 41.0 cm??? LV Ejection Fraction MOD 4C 56.3 % LV Cardiac Index MOD 4C 2409.0 cm???/min???m??? LV Diastolic Length 4C 8.3 cm LV Systolic Length 4C 6.5 cm LV Diastolic Volume MOD 2C 68.3 cm??? LV Systolic Volume MOD 2C 26.2 cm??? LV Ejection Fraction MOD 2C 61.6 % LV Cardiac Index MOD 2C 1917.5 cm???/min???m??? LV Diastolic Length 2C 7.0 cm LV Systolic Length 2C 5.9 cm LA Volume 42.1 cm??? 18 - 58 / 22 - 52 cm??? LA Volume Index 24.0 cm???/m??? 16 - 28 cm???/m??? M-MODE Aortic Root Diameter MM 3.4 cm AV Cusp Separation MM 2.0 cm DOPPLER AV Peak Velocity 145.0 cm/s AV Peak Gradient 8.4 mmHg MV Area PHT 5.5 cm??? Mitral E Point Velocity 66.9 cm/s Mitral A Point Velocity 99.8 cm/s Mitral E to A Ratio 0.7 MV Deceleration Time 138.6 ms FINDINGS Left Ventricle Left ventricular ejection fraction is estimated at 55-60 %. Left ventricular cavity size normal. Mildly increased posterior wall thickness. Normal left ventricular wall motion. Right Ventricle Normal right ventricular size. Unable to estimate the right ventricular systolic pressure. Right Atrium Normal right atrial size. No right atrial thrombus or mass seen. Negative agitated saline bubble study for right to left shunt. Left Atrium Normal left atrial size. No left atrial thrombus or mass present. Mitral Valve Structurally normal mitral valve. No evidence for mitral valve prolapse. No mitral stenosis. Trace mitral regurgitation. Aortic Valve Trileaflet aortic valve. Thickened aortic valve without stenosis. Tricuspid Valve Structurally normal tricuspid valve. No tricuspid stenosis, regurgitation or prolapse. Pulmonic Valve Structurally normal pulmonic valve. No pulmonic regurgitation. Pericardium No pericardial or pleural effusion. Aorta Normal size aortic root and proximal ascending aorta. CONCLUSIONS Diagnosis: Stroke LVH with preserved systolic function Normal atrial size No significant valvular abnormalities no [id number] shunting on bubble study Previewed by: Dr. Carter Eddy MD (Electronically Signed) Final Date: 28 July 2024 09:49
--- NOTE | 2024-07-28 12:59 | P.PN ---
Progress Note - Text Progress Note Date: 07/28/24 The patient is seen and examined at bedside. She is accompanied by her . She is a 84-year-old pleasant female who is ambulatory in the hallways. Apparently she has been having some falls and the other day was found on the floor when her at home. She says that she slid down off of her bed and had a scooter on the floor was because she was unable to get up. She had a couple of falls couple of weeks ago after taking Zoloft. She has since stopped the Zoloft. She denies any new pain in her lower back. She denies any new pain in her lower extremities. She has some pain around her right shoulder which is being evaluated as well. She is not having changes in bowel bladder function. She is very eager to try to get home. She says that she has accommodations for home and her concurs that she can be safe at home. On exam she is alert and oriented x 3. She has a large bruise over her right arm but is stable. She has some decreased activity around her right shoulder. Her lower extremities have sustained dorsiflexion plantarflexion EHL hip flexion and knee extension intact. There is no pain with internal ex rotation of her hips. Her back is nontender to palpation range of motion. Her prior lumbar incisions are well-healed. Imaging of her lumbar spine shows prior decompression fusion L4-5 from apparent surgery approximately 16 years ago She has evidence of some central and right foraminal stenosis L3-4 with chronic degenerative changes facet arthrosis and degenerative disc disease Assessment and plan Spinal stenosis L3-4 Chronic degenerative changes lumbar spine History of prior fusion L4-5 which appears stable Recurrent falls Right shoulder pain status post fall The patient is improving her ambulation and from a spine standpoint I think it is okay for her to discharge home to be followed as an outpatient basis. She is not having any acute neurologic changes in her lower extremities and she is not complaining of pain at her back. I would not plan any acute surgical intervention for her lumbar spine at this point. She does have evidence of spinal stenosis at L3-4 and she could be a candidate for interventional pain management if she continues to have symptoms or troubles with her mobility in terms of her legs. This can be done outpatient basis. The patient has had recurrent falls. I think this is multifactorial. She does not have any acute weakness or focal neurologic deficit at her lower extremities. She does not have obvious instability at her lumbar spine. From a spine surgery standpoint is okay for her to discharge home if she is cleared with medicine.
[2024-07-28 13:16] VITALS: BP 135/82; PULSE 80; RESP 17; TEMP 97.7
--- NOTE | 2024-07-28 14:30 | P.PN ---
Subjective Progress Note Date: 07/27/24 07/27/2024: Patient was seen for a follow-up. Patient is laying in the bed. Offers no new complaints. She wants to go home. 07/26/2024: Patient was seen for follow-up. Patient's was also present today. He informed me that patient has problems with balance going on for last 1 year, getting worse. She would be walking, and her right shoulder starts drooping down, and she starts veering to the right side and sometimes she falls. This happens more when she is tired. Patient's mentioned that on Saturday, 1 week ago, he found her sitting on the floor in the bedroom, as she had fell hit, and hit her head on the nightstand. Patient has very poor balance, if she bends down, she could fall. She gets dizzy and falls. He mentions that he took the antidepressant only for 2 days about 1-1/2 weeks ago, but her balance has continued to be a problem including her frequency of falls. She cannot walk on the grass, as she has no balance. When she gets down, she cannot get up. She scoots to get somewhere to get up. Otherwise she has no strength to get up. Patient's states that 1 day she was watering the joe and she fell. Patient denies any problem with urinary control or incontinence. Patient has reported numbness in the feet to her , but at present she denies it. She does have severe arthritis of the right shoulder. Patient has history of low back surgery in 2016. Objective - Vital Signs Vital signs: Vital Signs Temp 97.4 F L 07/27/24 14:15 Pulse 82 07/27/24 14:15 Resp 17 07/27/24 14:15 BP 126/71 07/27/24 14:15 Pulse Ox 96 07/27/24 14:15 FiO2 Intake & Output 07/27/24 07/27/24 07/28/24 06:59 18:59 06:59 Intake Total 736 Output Total 400 Balance -400 736 Intake: Oral 736 Output: Urine 400 Other: Voiding Method External Catheter External Catheter # Voids 4 2 # Bowel Movements 0 0 - Exam Patient's mental status, speech and language functions are normal. Muscle strength again is normal in the arms and legs distally and proximally except right shoulder which is weak from arthritis/rotator cuff with a lot of pain. But still she has good strength in the right deltoid. Reflexes are symmetric, 1+ at the biceps, 1 brachioradialis, 1 at the ankles and plantars are downgoing bilaterally. No clonus. Sensory to touch is equal. Tone is completely normal with no rigidity. No tremors at rest. No bradykinesia. No parkinsonian feature. - Labs CBC & Chem 7: 07/28/24 03:44 07/28/24 03:44 Assessment and Plan Assessment: * Status post fall times twice, likely due to side effect of medication. Patient states that she was started on some mood stabilizer 2 weeks ago, and after taking 2 doses, she fell on 2 consecutive days after taking the medication. No subsequent falls since then. Patient's examination is nonfocal. Her muscle strength is normal. * Chronic balance problem for 1 year, progressively getting worse (as per patient's report). Patient has frequent falls, and when she falls, cannot get up. Rule out spinal stenosis. No clinical evidence of Parkinson's. CT head showed no evidence of CVA. * Right shoulder pain, likely due to arthritis. Rule out rotator cuff tear. * Hypertension * Hyperlipidemia Plan: * Patient has chronic gait problem, with gait imbalance, and frequent falls. * MRI of the cervical spine revealed large right paracentral disc bulge C5-6 with moderate anterior thecal sac compression. This has cord contact and some cord deformity. Mild spinal canal narrowing is present posterior to the disc bulge. Broad-based disc bulging present C5-6, C6-7 and C7-T1 without cord contact or spinal canal stenosis. Uncovertebral joint hypertrophy contributing to foraminal narrowing on the right at C4-5 and bilaterally C5-6. I personally reviewed MRI, and there is no significant spinal stenosis. * MRI of the lumbar spine revealed spinal canal stenosis due to facet hypert rophy, ligamentum flavum laxity and mild disc bulging at L3-4. Mild spinal canal narrowing at L2-3 due to disc bulge and facet hypertrophy at L4-5 due to ligamentum flavum laxity. Diffuse disc desiccation throughout the lumbar spine. Disc spacers present at L4-5. I personally reviewed MRI of the lumbar spine and appear there is severe spinal stenosis at L3-4 level. * Recommend orthopedic surgery reconsultation for severe lumbar spinal stenosis. * Orthopedic surgery did evaluate patient for right shoulder pain and diagnosed with osteoarthritis of the right shoulder and was recommended pain control. * B12 3508, folate 38.7. TSH 1.19. * PT, OT evaluate gait. * Neurologically clear, if cleared by orthopedic surgery. * Patient may benefit from use of 4-prong cane for gait assistance.
[2024-07-28] MEDS ORDERED: amLODIPine 5 MG TAB PO SCH (21:00)
--- NOTE | 2024-07-29 10:10 | P.DS ---
Providers Date of admission: 07/27/24 08:00 Expected date of discharge: 07/28/24 Attending physician: Elroy Conteh Consults: 07/24/24 23:47 Consult Physician Urgent Consulting Provider: Gus Villasenor Consult Reason/Comments: Frequent falls Do you want consulting provider notified?: Yes, Notify in am 07/25/24 16:39 Consult Physician Routine Consulting Provider: Luke Joiner Consult Reason/Comments: syncope Do you want consulting provider notified?: Yes 07/26/24 09:24 Consult Physician Routine Consulting Provider: Kaitlin Causey Consult Reason/Comments: Roght shoulder pain, suspect Rotator cuff tear Do you want consulting provider notified?: Yes 07/27/24 21:35 Consult Physician Routine Consulting Provider: Kaitlin Causey Consult Reason/Comments: Severe lumbar spinal stenosis, balance issues, frequent falls Do you want consulting provider notified?: Yes, Notify in am Primary care physician: Vicente Plascencia Hospital Course: Final diagnosis Spinal stenosis of the L3-4 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 Patient will follow-up with Dr. Plascencia in the outpatient setting upon discharge. Patient is to continue with outpatient follow-up with orthopedics as scheduled. Total time taken is greater than 35 minutes. Hospital course This is a 84-year-old female who was recently admitted with increased weakness and dizziness and recurrent falls with concerns of hypotension and also possible syncope. Patient was evaluated by cardiology with adjustments to medications. Patient reports she was recently started on an antidepressant by her primary care provider having worsening symptoms and stopped taking the medication. Patient does have history of previous back surgeries as was evaluated by orthopedics along with software licensing specialist Dr. Causey with no plans of immediate surgical intervention right now recommending outpatient follow-up. Patient was evaluated by physical therapy and up walking the halls with standby assistance and has been encouraged to use the cane and/or walker. Patient is extremely adamant about wanting to go home and this was discussed with neurology and patient has been cleared by consultations. Patient to keep a diary of daily blood pressure readings for follow-up. Patient reports she is looking into changing physicians and will do so in the outpatient setting. Please refer to other consultation notes for further HPI. Currently no reports of chest pain, shortness of breath, or palpitations. Patient is afebrile. No reports of nausea or vomiting and patient is tolerating diet. Patient will be discharged home today. Guarded prognosis given significant comorbidities. Physical exam: Gen: This is a 84-year-old female who is awake, alert and oriented x 3, thin built, elderly appearing HEENT: Head is atraumatic, normocephalic. Pupils equal, round. Sclerae is anicteric. NECK: Supple. No JVD. No lymphadenopathy. No thyromegaly. LUNGS: Diminished breath sounds bilaterally otherwise clear to auscultation. No wheezes or rhonchi. No intercostal retractions. HEART: S1, S2 are muffled ABDOMEN: Soft. Thin. Bowel sounds are present. No masses. No tenderness. EXTREMITIES: No pedal edema. No calf tenderness. NEUROLOGICAL: Patient is awake, alert and oriented x3. Cranial nerves 2 through 12 are grossly intact. Please refer to medication reconciliation sheet for a list of medications. The impression and plan of care has been dictated by Maricruz Sheikh, Nurse Pr actitioner as directed. Dr. Wero MD I have performed a history and examination and MDM of this patient, discussed the same with the dictator, and agree with the dictator's assessment and plan as written ,documented as a scribe. Based on total visit time, I have performed more than 50% of the visit. Patient Condition at Discharge: Good Plan - Discharge Summary Discharge Rx Participant: Yes New Discharge Prescriptions: Continue Liothyronine Sodium [Cytomel] 5 mcg PO DAILY Levothyroxine Sodium [Synthroid] 25 mcg PO DAILY Changed amLODIPine [Norvasc] 5 mg PO BID 30 Days #60 tab Discharge Medication List Levothyroxine Sodium [Synthroid] 25 mcg PO DAILY 07/25/24 [History] Liothyronine Sodium [Cytomel] 5 mcg PO DAILY 07/25/24 [History] amLODIPine [Norvasc] 5 mg PO BID 30 Days #60 tab 07/28/24 [Rx] Follow up Appointment(s)/Referral(s): Kaitlin Causey DO [Doctor of Osteopathic Medicine] - 3 Weeks Wilberto Alves DO [Doctor of Osteopathic Medicine] - As Needed Vicente Plascencia DO [Primary Care Provider] - 1-2 days Patient Instructions/Handouts: Weakness (DC) Activity/Diet/Wound Care/Special Instructions: Activity limited until follow-up Follow-up with primary care provider on discharge Follow-up with orthopedics for spine outpatient Dr. Causey Continue monitoring blood pressure and keep a diary of blood pressure readings daily and bring with you during follow-up Discharge Disposition: HOME SELF-CARE
== END 2024-07-28 13:44 | disposition home or self-care (01) | DRG 552 ==
LOC: EC 18:31 → 6NMEDSUR 23:47 → OBSVTOIN 07-27 08:00
PROVIDERS: ADMIT Hospitalist; ATTEND Hospitalist
DX: M48.02 Spinal stenosis, cervical region (principal); M48.061 Spinal stenosis, lumbar region without neurogenic claudication; R29.6 Repeated falls; M47.812 Spondylosis without myelopathy or radiculopathy, cervical region; M19.011 Primary osteoarthritis, right shoulder; Z79.890 Hormone replacement therapy; Z79.899 Other long term (current) drug therapy; Z98.1 Arthrodesis status; R55 Syncope and collapse; I44.0 Atrioventricular block, first degree; G89.29 Other chronic pain; M47.816 Spondylosis without myelopathy or radiculopathy, lumbar region; I10 Essential (primary) hypertension; E78.5 Hyperlipidemia, unspecified; E03.9 Hypothyroidism, unspecified; D86.9 Sarcoidosis, unspecified; W01.0XXA Fall on same level from slipping, tripping and stumbling without subsequent striking against object, initial encounter; Z88.8 Allergy status to other drugs, medicaments and biological substances; Z91.81 History of falling
CPT/HCPCS: 36415; 70450; 71046; 72141; 72148; 80048; 80053; 81001; 82607; 82746; 83605; 83735; 83880; 84443; 84484; 85025; 85610; 85730; 93005; 93306; 96360; 96361; 99285

== ENCOUNTER 2025-02-19 11:26 | Inpatient (IN) | payer MEDICARE ==
[2025-02-19 11:32] LABS: Glucose,Whole Blood 141 mg/dL (70-110)
[2025-02-19] MEDS: SODIUM CHLORIDE 0.9% 1,000 ML IV ONE (12:22)
[2025-02-19 12:28] LABS: Basophils # (A) 0.07 10*3/uL (0.00-0.10); Basophils % (A) 0.9 %; Eosinophils # (A) 0.04 10*3/uL (0.04-0.35); Eosinophils % (A) 0.5 %; HCT 44.9 % (37.2-46.3); HGB 15.6 g/dL (12.0-15.0); Lymphocytes # (A) 0.83 10*3/uL (0.90-5.00); Lymphocytes % (A) 10.7 %; MCH 33.2 pg (27.0-32.0); MCHC 34.7 g/dL (32.0-37.0); MCV 95.5 fL (80.0-97.0); Mean Platelet Volume 9.6 fL (9.5-12.2); Monocytes # (A) 0.48 10*3/uL (0.20-1.00); Monocytes % (A) 6.2 %; Neutrophils # (A) 6.28 10*3/uL (1.80-7.70); Neutrophils % (A) 81.2 %; Platelet Count 264 10*3/uL (140-440); RDW 12.1 % (11.5-14.5); WBC 7.74 10*3/uL (4.50-10.00)
--- NOTE | 2025-02-19 12:33 | ED ---
Weakness HPI - General Chief complaint: Weakness Stated complaint: Shoulder and Back Pain Time Seen by Provider: 02/19/25 11:43 Source: patient, RN notes reviewed Mode of arrival: ambulatory Limitations: no limitations - History of Present Illness Initial comments: This is an 84-year-old female who presents to the emergency department for weakness and confusion. Patient states that she fell 2 days ago and hurt her lower back. She was on the floor for a couple of hours because she did not have the energy to get up. Does report feeling somewhat weak. Her daughter states that she has been very disoriented and confused. States that she does not make sense when she is speaking and yesterday appeared to be slurring her words. She also advised that she is not eating. Patient states that she just does not feel like eating. Denies any nausea/vomiting or abdominal pain. Her daughter states that she has never acted like this before. MD Complaint: generalized weakness - Related Data Home Medications Medication Instructions Recorded Confirmed Levothyroxine Sodium [Synthroid] 25 mcg PO DAILY 07/25/24 02/19/25 Liothyronine Sodium [Cytomel] 5 mcg PO DAILY 07/25/24 02/19/25 Losartan Potassium [Cozaar] 100 mg PO DAILY 02/19/25 02/19/25 Meloxicam [Mobic] 15 mg PO DAILY PRN 02/19/25 02/19/25 Montelukast [Singulair] 10 mg PO DAILY 02/19/25 02/19/25 Allergies Allergy/AdvReac Type Severity Reaction Status Date / Time sertraline [From Zoloft] Allergy Hallucinati Verified 02/19/25 14:00 ons levofloxacin [From Levaquin] AdvReac Swelling Verified 02/19/25 14:00 Review of Systems ROS Statement: Those systems with pertinent positive or pertinent negative responses have been documented in the HPI. ROS Other: All systems not noted in ROS Statement are negative. Past Medical History Past Medical History: Hyperlipidemia, Hypertension Additional Past Medical History / Comment(s): sarcoidosis History of Any Multi-Drug Resistant Organisms: None Reported Past Surgical History: Joint Replacement, Orthopedic Surgery Smoking Status: Never smoker Past Alcohol Use History: None Reported Past Drug Use History: None Reported General Exam Limitations: no limitations General appearance: alert, in no apparent distress Head exam: Present: atraumatic, normocephalic, normal inspection Respiratory exam: Present: normal lung sounds bilaterally. Absent: respiratory distress, wheezes, rales, rhonchi, stridor Cardiovascular Exam: Present: regular rate, normal rhythm Neurological exam: Present: alert, oriented X3, CN II-XII intact Expanded Cerebellar function: Finger to Nose: Normal, Heel to Limon: Normal, Romberg: Normal Motor strength exam: RUE: 5, LUE: 5, RLE: 5, LLE: 5 Psychiatric exam: Present: normal affect, normal mood Skin exam: Present: warm, dry, intact, normal color. Absent: rash Course Vital Signs 02/19/25 02/19/25 02/19/25 11:29 13:40 14:04 Temperature 98.0 F Pulse Rate 86 85 92 Respiratory 17 18 18 Rate Blood Pressure 137/83 164/78 187/111 O2 Sat by Pulse 97 95 96 Oximetry 02/19/25 02/19/25 02/19/25 14:54 15:48 16:26 Temperature Pulse Rate 86 87 84 Respiratory 18 18 18 Rate Blood Pressure 192/103 161/90 154/91 O2 Sat by Pulse 97 94 L 95 Oximetry Medical Decision Making - Medical Decision Making This is an 84 year old female who presents to the emergency department for weakness. Was pt. sent in by a medical professional or institution? @ -No Did you speak to anyone other than the patient for history? @ -Her daughter provided the history of the slurring words, confusion, and not eating. Did you review nursing and triage notes? @ -Yes, and I agree, it is accurate with regards to the patient's symptoms. Were old charts reviewed? @ -No Differential Diagnosis? @ -Differential Weakness: Hypoglycemia, shock, sepsis, hyponatremia, anemia, infection, [place], ETOH, adverse medicine reaction, overdose, stroke, this is not meant to be an all-inclusive list. EKG interpreted by me (3pts min.)? @ -EKG interpreted by me demonstrating the following: Sinus rhythm. Ventricu lar rate 82 bpm, IN interval 211 ms, QRS duration 81 ms, QTc 424 ms. X-rays interpreted by me (1pt min.)? @ -X-ray of the thoracic and lumbar spine obtained. My interpretation identifies no acute fractures. Chest x-ray obtained. My interpretation identifies mild bibasilar infiltrates. CT interpreted by me (1pt min.)? @ -CT scan of the brain obtained. My interpretation identifies no acute intracranial hemorrhage. U/S interpreted by me (1pt. min.)? @ -Not obtained What testing was considered but not performed? (CT, X-rays, U/S, labs)? Why? @ -None What meds were considered but not given? Why? @ -None Did you discuss the management of the patient with other professionals? @ -Yes, Bernie Bay with [facility], who accepts the patient for admission. Did you reconcile home meds? @ -Yes Was smoking cessation discussed for >3mins.? @ -No Was critical care preformed (if so, how long)? @ -No Were there social determinants of health that impacted care today? How? (Homelessness, low income, unemployed, alcoholism, drug addiction, transportation, low edu. Level, literacy, decrease access to med. care, fdc, rehab)? @ -No Was there de-escalation of care discussed even if they declined? (Discuss DNR or withdrawal of care, Hospice)? @ -No What co-morbidities impacted this encounter? (DM, HTN, Smoking, COPD, CAD, Cancer, CVA, Hep., AIDS, mental health diagnosis, sleep apnea, morbid obesity)? @ -HTN, HLD Was patient admitted / discharged? @ -Admitted. Lab work relatively unremarkable. Urinalysis negative for signs of infection. Of note, patient was retaining urine and had to have a straight cath. Chest x-ray advised that she had bibasilar infiltrates. They advised that this is more likely related to atelectasis, however pneumonia could be considered. Patient does not have any respiratory symptoms to suggest pneumonia. Laboratory studies were also not suggestive of infection. Will avoid treatment at this time and defer to admitting team. X-ray of the thoracic and lumbar spine obtained also revealing no acute findings. CT scan of the br ain obtained revealing no acute process. The cause of her presentation is not clear at this point. She may just be declining with regards to the dementia. While she was not exhibiting any slurred speech or neurological deficits on exam currently, her daughter advised that she was very delirious with slurred speech yesterday. Family is also concerned that she is falling multiple times a day and unable to get up on her own. Given patient's progressive weakness and failure to thrive, she was admitted to medicine for further management. Consult placed for neurology regarding the episode of slurred speech and delirium. Physical and occupational therapy consulted as well. Consult placed for case management regarding possible ECF placement. Case discussed with ED attending Dr. Jackson. Undiagnosed new problem with uncertain prognosis? @ -None Drug Therapy requiring intensive monitoring for toxicity (Heparin, Nitro, Insulin, Cardizem)? @ -None Were any procedures done? @ -None Diagnosis/symptom? @ -Weakness, frequent falls, failure to thrive Acute, or Chronic, or Acute on Chronic? @ -Acute Uncomplicated (without systemic symptoms) or Complicated (systemic symptoms)? @ -Complicated Side effects of treatment? @ -None Exacerbation, Progression, or Severe Exacerbation] @ -Not applicable Poses a threat to life or bodily function? @ -Yes, patient unable to function in current state - Lab Data Result diagrams: 02/19/25 12:14 02/19/25 12:14 Lab Results 02/19/25 02/19/25 02/19/25 Range/Units 11:31 12:14 12:14 WBC 7.74 (4.50-10.00) 10*3/uL RBC 4.70 (4.10-5.20) 10*6/uL Hgb 15.6 H (12.0-15.0) g/dL Hct 44.9 (37.2-46.3) % MCV 95.5 (80.0-97.0) fL MCH 33.2 H (27.0-32.0) pg MCHC 34.7 (32.0-37.0) g/dL Plt Count 264 (140-440) 10*3/uL MPV 9.6 (9.5-12.2) fL Immature Gran % (Auto) 0.5 % Neutrophils % 81.2 % Lymphocytes % 10.7 % Monocytes % 6.2 % Eosinophils % 0.5 % Basophils % 0.9 % Immature Gran # 0.04 (0.00-0.04) 10*3/uL Neutrophils # 6.28 (1.80-7.70) 10*3/uL Lymphocytes # 0.83 L (0.90-5.00) 10*3/uL Monocytes # 0.48 (0.20-1.00) 10*3/uL Eosinophils # 0.04 (0.04-0.35) 10*3/uL Basophils # 0.07 (0.00-0.10) 10*3/uL PT 11.7 (10.0-12.5) sec INR 1.1 (<1.2) APTT 23.1 (22.0-30.0) sec Sodium (137-145) mmol/L Potassium (3.5-5.1) mmol/L Chloride (98-107) mmol/L Carbon Dioxide (22-30) mmol/L Anion Gap mmol/L BUN (7-17) mg/dL Creatinine (0.52-1.04) mg/dL Est GFR (CKD-EPI)AfAm (>60 ml/min/1.73 sqM) Est GFR (CKD-EPI)NonAf (>60 ml/min/1.73 sqM) Glucose (74-99) mg/dL POC Glucose (mg/dL) 141 H (70-110) mg/dL POC Glu Shoe Ironer ID Trudi Bob Plasma Lactic Acid Jackson (0.7-2.0) mmol/L Calcium (8.4-10.2) mg/dL Magnesium (1.6-2.3) mg/dL Total Bilirubin (0.2-1.3) mg/dL AST (14-36) U/L ALT (4-34) U/L Alkaline Phosphatase (38-126) U/L Creatine Kinase (30-135) U/L Troponin I (0.000-0.034) ng/mL Total Protein (6.3-8.2) g/dL Albumin (3.5-5.0) g/dL Urine Color Urine Appearance (Clear) Urine pH (5.0-8.0) Ur Specific [place] (1.001-1.035) Urine Protein (Negative) Urine Glucose (UA) (Negative) Urine Ketones (Negative) Urine Blood (Negative) Urine Nitrite (Negative) Urine Bilirubin (Negative) Urine Urobilinogen (<2.0) mg/dL Ur Leukocyte Esterase (Negative) Urine RBC (0-5) /hpf Urine WBC (0-5) /hpf Urine Mucus (None) /hpf 02/19/25 02/19/25 02/19/25 Range/Units 12:14 12:14 12:14 WBC (4.50-10.00) 10*3/uL RBC (4.10-5.20) 10*6/uL Hgb (12.0-15.0) g/dL Hct (37.2-46.3) % MCV (80.0-97.0) fL MCH (27.0-32.0) pg MCHC (32.0-37.0) g/dL Plt Count (140-440) 10*3/uL MPV (9.5-12.2) fL Immature Gran % (Auto) % Neutrophils % % Lymphocytes % % Monocytes % % Eosinophils % % Basophils % % Immature Gran # (0.00-0.04) 10*3/uL Neutrophils # (1.80-7.70) 10*3/uL Lymphocytes # (0.90-5.00) 10*3/uL Monocytes # (0.20-1.00) 10*3/uL Eosinophils # (0.04-0.35) 10*3/uL Basophils # (0.00-0.10) 10*3/uL PT (10.0-12.5) sec INR (<1.2) APTT (22.0-30.0) sec Sodium 133 L (137-145) mmol/L Potassium 4.6 (3.5-5.1) mmol/L Chloride 102 (98-107) mmol/L Carbon Dioxide 22 (22-30) mmol/L Anion Gap 9 mmol/L BUN 22 H (7-17) mg/dL Creatinine 0.72 (0.52-1.04) mg/dL Est GFR (CKD-EPI)AfAm >90 (>60 ml/min/1.73 sqM) Est GFR (CKD-EPI)NonAf 79 (>60 ml/min/1.73 sqM) Glucose 127 H (74-99) mg/dL POC Glucose (mg/dL) (70-110) mg/dL POC Glu Shoe Ironer ID Plasma Lactic Acid Jackson 1.7 (0.7-2.0) mmol/L Calcium 10.2 (8.4-10.2) mg/dL Magnesium 1.8 (1.6-2.3) mg/dL Total Bilirubin 0.9 (0.2-1.3) mg/dL AST 31 (14-36) U/L ALT 25 (4-34) U/L Alkaline Phosphatase 85 (38-126) U/L Creatine Kinase 30 (30-135) U/L Troponin I <0.012 (0.000-0.034) ng/mL Total Protein 6.9 (6.3-8.2) g/dL Albumin 4.5 (3.5-5.0) g/dL Urine Color Urine Appearance (Clear) Urine pH (5.0-8.0) Ur Specific [place] (1.001-1.035) Urine Protein (Negative) Urine Glucose (UA) (Negative) Urine Ketones (Negative) Urine Blood (Negative) Urine Nitrite (Negative) Urine Bilirubin (Negative) Urine Urobilinogen (<2.0) mg/dL Ur Leukocyte Esterase (Negative) Urine RBC (0-5) /hpf Urine WBC (0-5) /hpf Urine Mucus (None) /hpf 02/19/25 Range/Units 15:08 WBC (4.50-10.00) 10*3/uL RBC (4.10-5.20) 10*6/uL Hgb (12.0-15.0) g/dL Hct (37.2-46.3) % MCV (80.0-97.0) fL MCH (27.0-32.0) pg MCHC (32.0-37.0) g/dL Plt Count (140-440) 10*3/uL MPV (9.5-12.2) fL Immature Gran % (Auto) % Neutrophils % % Lymphocytes % % Monocytes % % Eosinophils % % Basophils % % Immature Gran # (0.00-0.04) 10*3/uL Neutrophils # (1.80-7.70) 10*3/uL Lymphocytes # (0.90-5.00) 10*3/uL Monocytes # (0.20-1.00) 10*3/uL Eosinophils # (0.04-0.35) 10*3/uL Basophils # (0.00-0.10) 10*3/uL PT (10.0-12.5) sec INR (<1.2) APTT (22.0-30.0) sec Sodium (137-145) mmol/L Potassium (3.5-5.1) mmol/L Chloride (98-107) mmol/L Carbon Dioxide (22-30) mmol/L Anion Gap mmol/L BUN (7-17) mg/dL Creatinine (0.52-1.04) mg/dL Est GFR (CKD-EPI)AfAm (>60 ml/min/1.73 sqM) Est GFR (CKD-EPI)NonAf (>60 ml/min/1.73 sqM) Glucose (74-99) mg/dL POC Glucose (mg/dL) (70-110) mg/dL POC Glu Shoe Ironer ID Plasma Lactic Acid Jackson (0.7-2.0) mmol/L Calcium (8.4-10.2) mg/dL Magnesium (1.6-2.3) mg/dL Total Bilirubin (0.2-1.3) mg/dL AST (14-36) U/L ALT (4-34) U/L Alkaline Phosphatase (38-126) U/L Creatine Kinase (30-135) U/L Troponin I (0.000-0.034) ng/mL Total Protein (6.3-8.2) g/dL Albumin (3.5-5.0) g/dL Urine Color Colorless Urine Appearance Cloudy H (Clear) Urine pH 6.0 (5.0-8.0) Ur Specific [place] 1.014 (1.001-1.035) Urine Protein Negative (Negative) Urine Glucose (UA) Negative (Negative) Urine Ketones 1+ H (Negative) Urine Blood Negative (Negative) Urine Nitrite Negative (Negative) Urine Bilirubin Negative (Negative) Urine Urobilinogen <2.0 (<2.0) mg/dL Ur Leukocyte Esterase Negative (Negative) Urine RBC 2 (0-5) /hpf Urine WBC 2 (0-5) /hpf Urine Mucus Rare H (None) /hpf - Radiology Data Radiology results: report reviewed, image reviewed Disposition Clinical Impression: Weakness, Failure to thrive, Confusion, Frequent falls Disposition: ADMITTED IP TO THIS HOSP
[2025-02-19 12:41] LABS: ALT 25 U/L (4-34); AST 31 U/L (14-36); African American GFR (CKD) >90 (>60 ml/min/1.73 sqM); Albumin 4.5 g/dL (3.5-5.0); Alkaline Phosphatase 85 U/L (38-126); Anion Gap 9 mmol/L; Blood Urea Nitrogen 22 mg/dL (7-17); Calcium 10.2 mg/dL (8.4-10.2); Carbon Dioxide 22 mmol/L (22-30); Chloride 102 mmol/L (98-107); Creatine Kinase 30 U/L (30-135); Glucose 127 mg/dL (74-99); Magnesium 1.8 mg/dL (1.6-2.3); Non-African American GFR(CKD) 79 (>60 ml/min/1.73 sqM); Potassium 4.6 mmol/L (3.5-5.1); Sodium 133 mmol/L (137-145); Total Bilirubin 0.9 mg/dL (0.2-1.3); Total Protein 6.9 g/dL (6.3-8.2)
[2025-02-19 13:03] LABS: INR 1.1 (<1.2); Prothrombin Time 11.7 sec (10.0-12.5)
--- NOTE | 2025-02-19 13:03 | XR ---
EXAMINATION TYPE: XR chest 2V DATE OF EXAM: 02/19/2025 12:53 PM COMPARISON: None. CLINICAL INDICATION: Female, 84 years old with history of Weakness, TECHNIQUE: XR chest 2V view(s) obtained. FINDINGS: The heart size is normal. The pulmonary vasculature is normal. Mild bibasilar infiltrates are present. Correlate for atelectasis. Early pneumonia could be considere d.. IMPRESSION: 1. Mild bibasilar infiltrates. Correlate for atelectasis or pneumonia. [facility], , 02/19/2025 1:01 PM
--- NOTE | 2025-02-19 13:11 | XR ---
EXAMINATION TYPE: XR lumbar spine 2 or 3V DATE OF EXAM: 02/19/2025 12:52 PM COMPARISON: None. CLINICAL INDICATION: Female, 84 years old with history of Fall, pain TECHNIQUE: 3 view(s) obtained. FINDINGS: There is disc space narrowing present at L1-L2 3 and L3-4. There is fixation and disc space are prese nt L4-5. There is attempted sacralization of L5 on the left. T12 ribs appear rumen anterior absent. Scoliosis is present with the convexity to the right centered at L3. For purposes of this examination, the fixation posterior in the lower lumbar spine is labeled L4-5. P jigna film correlation be recommended prior to any surgical intervention. IMPRESSION: 1. Scoliosis with degenerative disc changes. 2. Postsurgical changes [facility], , 02/19/2025 1:09 PM
--- NOTE | 2025-02-19 13:13 | XR ---
EXAMINATION TYPE: XR thoracic spine 2V DATE OF EXAM: 02/19/2025 12:52 PM COMPARISON: None. CLINICAL INDICATION: Female, 84 years old with history of Fall, pain TECHNIQUE: 3 view(s) obtained. FINDINGS: There are 12 thoracic type vertebral bodies. Pedicles are intact. Disc heights are preserved. Vertebr al body heights are preserved. Alignment is preserved. Note is made of degenerative changes within th e cervical spine. Minimal spondylolisthesis at C2-3 C3-4 may be present. IMPRESSION: 1. No acute osseous abnormality thoracic spine. [facility], , 02/19/2025 1:11 PM
--- NOTE | 2025-02-19 13:27 | CT ---
EXAMINATION TYPE: CT brain wo con CT DLP: 1273.4 mGycm, Automated exposure control for dose reduction was used. DATE OF EXAM: 02/19/2025 1:18 PM COMPARISON: CT brain 07/24/2024 CLINICAL INDICATION:Female, 84 years old with history of AMS, AMS TECHNIQUE: Brain: Multiple axial CT images of the brain were obtained without IV contrast. . Coronal and sagitta l reformats reviewed. FINDINGS: Brain: Extra-axial spaces: No abnormal extra-axial fluid collections. Falx and tentorium calcifications. Ventricular system: Within normal limits Cerebral parenchyma: Age-appropriate cerebral volume loss. No acute intraparenchymal hemorrhage or ma ss effect. The briceño-white junction is well differentiated. Scattered hypoattenuating areas are seen within the periventricular white matter. Cerebellum: Unremarkable. Mass effect: No evidence of midline shift. Intracranial vasculature: Atherosclerotic calcifications of the intracranial vessels. Soft tissues: Normal. Calvarium/osseous structures: No depressed skull fracture. Paranasal sinuses and mastoid air cells: Clear. Right-sided greer bullosa. Visualized orbits: Senile calcific scleral plaques are present. Bilateral aphakia. IMPRESSION: 1. No acute intracranial process. 2. Nonspecific white matter changes, likely secondary to chronic small vessel ischemic disease. [facility], , 02/19/2025 1:24 PM
[2025-02-19 13:33] LABS: Partial Thromboplastin Time 23.1 sec (22.0-30.0)
[2025-02-19 16:00] LABS: Appearance,Urine Cloudy (Clear); Bilirubin,Urine Negative (Negative); Blood,Urine Negative (Negative); Color,Urine Colorless; Glucose,Urine (UA) Negative (Negative); Ketones,Urine 1+ (Negative); Leukocyte Esterase,Urine Negative (Negative); Mucus,Urine Rare /hpf; Nitrite,Urine Negative (Negative); Protein,Urine Negative (Negative); RBC,Urine 2 /hpf (0-5); Specific Gravity,Urine 1.014 (1.001-1.035); Urobilinogen,Urine <2.0 mg/dL (<2.0); WBC,Urine 2 /hpf (0-5)
[2025-02-19] MEDS ORDERED: ONDANSETRON 4 MG/2 ML VIAL IVP PRN (17:17)
[2025-02-19] MEDS ORDERED: MORPHINE SULFATE 4 MG/ML SYRINGE IV PRN (17:17)
[2025-02-19] MEDS ORDERED: NALOXONE 0.4 MG/ML 1 ML VIAL IV PRN (17:17)
[2025-02-19] MEDS ORDERED: HYDROcodone/APAP 5-325MG 1 EACH TAB PO PRN (17:17)
[2025-02-19] MEDS ORDERED: MELOXICAM 7.5 MG TAB PO PRN (17:37)
[2025-02-20] MEDS: LIOTHYRONINE SODIUM 5 MCG TAB PO SCH (06:16)
[2025-02-20] MEDS: LEVOTHYROXINE 25 MCG TAB PO SCH (06:16)
[2025-02-20] MEDS: PANTOPRAZOLE 40 MG/10 ML VIAL IV SCH (08:31)
[2025-02-20] MEDS: MONTELUKAST 10 MG TAB PO SCH (08:31)
[2025-02-20] MEDS: LOSARTAN 50 MG TAB PO SCH (08:31)
--- NOTE | 2025-02-20 15:31 | P.CNNES ---
History of Present Illness Consult date: 02/20/25 History of Present Illness: The patient is an 84-year-old female who is seen in neurologic consultation on February 20, 2025, in collaboration with Antoinette Thomas, via teleneurology. History is obtained from review of the chart, the patient and with the patient's who is present at the bedside at the time of the evaluation. Patient's reports that the patient has been confused. The patient's daughter reportedly brought her into the hospital because of confusion. Patient has not been acting normally. She has been falling. There is concern that the patient may be taking too much Tylenol or other pain medications. The patient herself reports that she fell a couple days ago. She has a chronically bad back. She has a history of back surgery. She says that after her fall, her back pain became much worse. She is unable to report how much pain medication she has been taking. According to the patient's , she does not have any prescri ption pain medication but only takes Tylenol. In review of the chart, the patient does have a prescription for Mobic, for pain. Further review notes that the patient has not been eating. According to the , the patient also has not been getting out of bed for several days. He says that she tends to spend all day in bed. He also reports that the patient has been having worsening of her memory, for the past 6 months or so. The patient reports that her legs are weak. She denies headache, vision changes, paresthesias. According to her , she was "totally confused". In regards to the patient's recent fall, she called her who came home, to help her get up from the floor. In the emergency department, CT scan of the brain was performed. There was no reported evidence of acute hemorrhage or infarct. Chest x-ray revealed bilateral atelectasis. Laboratory evaluation revealed an elevated hemoglobin of 15.6. White count is normal. BUN is elevated at 22 with a creatinine of 0.72. Sodium is slightly low at 133. Urine drug screen is negative. Urinalysis is negative. Review of Systems Constitutional: Reports anorexia, Reports chronic pain, Reports fatigue, Reports poor appetite, Reports weakness Musculoskeletal: Reports frequent falls, Reports low back pain Neurological: Reports weakness Past Medical History Past Medical History: Hyperlipidemia, Hypertension, Osteoarthritis (OA), Thyroid Disorder Additional Past Medical History / Comment(s): sarcoidosis, dementia, scoliosis, chronic small vessel ischemia, DJD, 1st degree AV block, spinal stenosis, disc bulging History of Any Multi-Drug Resistant Organisms: None Reported Past Surgical History: Joint Replacement, Orthopedic Surgery Additional Past Surgical History / Comment(s): bilateral total knees, L4-5 fusion Additional Past Anesthesia/Blood Transfusion Reaction / Comment(s): na Smoking Status: Never smoker Past Alcohol Use History: None Reported Past Drug Use History: None Reported - Past Family History Father History Unknown: Yes Mother History Unknown: Yes Medications and Allergies Home Medications Medication Instructions Recorded Confirmed Type Levothyroxine Sodium [Synthroid] 25 mcg PO DAILY 07/25/24 02/19/25 History Liothyronine Sodium [Cytomel] 5 mcg PO DAILY 07/25/24 02/19/25 History Losartan Potassium [Cozaar] 100 mg PO DAILY 02/19/25 02/19/25 History Meloxicam [Mobic] 15 mg PO DAILY PRN 02/19/25 02/19/25 History Montelukast [Singulair] 10 mg PO DAILY 02/19/25 02/19/25 History Allergies Allergy/AdvReac Type Severity Reaction Status Date / Time sertraline [From Zoloft] Allergy Hallucinati Verified 02/19/25 14:00 ons levofloxacin [From Levaquin] AdvReac Swelling Verified 02/19/25 14:00 Physical Examination - Vital Signs Vital Signs: Vital Signs Temp Pulse Pulse Resp BP BP Pulse Ox 02/20/25 07:29 97.6 F 90 18 155/77 96 02/20/25 01:42 98 F 89 16 150/70 95 02/19/25 18:42 98.0 F 91 20 188/80 97 02/19/25 18:08 98.4 F 89 18 111/89 95 02/19/25 16:26 84 18 154/91 95 02/19/25 15:48 87 18 161/90 94 L 02/19/25 14:54 86 18 192/103 97 02/19/25 14:04 92 18 187/111 96 02/19/25 13:40 85 18 164/78 95 02/19/25 11:29 98.0 F 86 17 137/83 97 Intake and Output 02/19/25 02/20/2502/20/25 22:59 06:59 14:59 Other: Voiding Method Toilet Toilet Diaper Diaper # Voids 3 Weight 63.503 kg General: The patient is seated in the bedside chair, well-nourished, well- developed and in no acute distress. HEENT: Head is atraumatic, normocephalic. Fundus not visualized. There is no scleral icterus. Mucous membranes are moist. Neck: Supple without carotid bruits Heart: Regular rate and rhythm Lungs: Essentially clear to auscultation Extremities: Without edema Neurological examination Mental status: The patient is awake and alert. She is able to state her full name, date of , "hospital". She is not oriented to the current year. She is able to report the current month, day of the week and logistics vice president. Speech is clear. There is no a anomia. There is no dysarthria or aphasia. Cranial nerves: Pupils are equal, and reactive at 3 mm. Visual garcia are full to confrontation. Extraocular movements are intact. There is no nystagmus. Facial sensation is intact. There is no facial asymmetry. Hearing is grossly intact. Uvula and palate are midline. Shoulder shrug is symmetric. Tongue protrudes midline. Motor: Strength is 5/5 throughout. Coordination: Kykuid-[id number] and [id number] testing is intact. There is a mild bilateral, upper extremity intention tremor. Sensation: Intact to light touch throughout. There is no extinction with double simultaneous stimulation. Deep tendon reflexes: 2+/4+ at the bilateral biceps, triceps, brachioradialis. Patellar reflexes are absent. Plantar responses are flexor bilaterally. Gait: Not assessed Results CT scan of the brain images have been personally viewed. I agree with the radiology report - Laboratory Findings CBC and BMP: 02/19/25 12:14 02/19/25 12:14 Abnormal Lab Findings: Abnormal Labs 02/19/25 02/19/25 02/19/25 11:31 12:14 12:14 Hgb 15.6 H MCH 33.2 H Lymphocytes # 0.83 L Sodium 133 L BUN 22 H Glucose 127 H POC Glucose (mg/dL) 141 H Urine Appearance Urine Ketones Urine Mucus 02/19/25 15:08 Hgb MCH Lymphocytes # Sodium BUN Glucose POC Glucose (mg/dL) Urine Appearance Cloudy H Urine Ketones 1+ H Urine Mucus Rare H Assessment and Plan Assessment: 1. Altered mental status, possibly secondary to excessive use of pain medications versus dehydration versus infection 2. Reported progressing, memory loss 3. Frequent falls 4. Chronic back pain 5. History of sarcoidosis 6. History of reported poor appetite Plan: 1. Hold narcotic and sedative medications 2. Increase fluids 3. Consider social work consultation regarding discharge plan 4. Speech therapy consultation regarding reported slurred speech 5. Labs have been ordered-B12, folate, TSH to look for treatable causes of dementia Thank you for allowing us to participate in the care of this patient Time with Patient: Greater than 30 (60 minutes were spent caring for this pat ient today including, obtaining history, examining the patient, reviewing imaging, chart documentation, labs, placing orders and creating this note)
--- NOTE | 2025-02-20 22:16 | P.HPIM ---
History of Present Illness H&P Date: 02/20/25 Chief Complaint: Weakness 84-year-old female who presents to the emergency department for weakness and confusion. Patient states that she fell 2 days ago and hurt her lower back. She was on the floor for a couple of hours because she did not have the energy to get up. Does report feeling somewhat weak. Her daughter states that she has been very disoriented and confused. States that she does not make sense when she is speaking and yesterday appeared to be slurring her words. She also advised that she is not eating. Patient states that she just does not feel like eating. Denies any nausea/vomiting or abdominal pain. Her daughter states that she has never acted like this before. CT scan of the brain was performed. There was no reported evidence of acute hemorrhage or infarct. Chest x-ray revealed bilateral atelectasis. Laboratory evaluation revealed an elevated hemoglobin of 15.6. White count is normal. BUN is elevated at 22 with a creatinine of 0.72. Sodium is slightly low at 133. Urine drug screen is negative. Urinalysis is negative. Review of Systems REVIEW OF SYSTEMS: CONSTITUTIONAL: No fever, no malaise, no fatigue. HEENT: No recent visual problems or hearing problems. Denied any sore throat. CARDIOVASCULAR: No chest pain, orthopnea, PND, no palpitations, no syncope. PULMONARY: No shortness of breath, no cough, no hemoptysis. GASTROINTESTINAL: No diarrhea, no nausea, no vomiting, no abdominal pain. NEUROLOGICAL: No headaches, no weakness, no numbness. HEMATOLOGICAL: Denies any bleeding or petechiae. GENITOURINARY: Denies any burning micturition, frequency, or urgency. MUSCULOSKELETAL/RHEUMATOLOGICAL: Denies any joint pain, swelling, or any muscle pain. ENDOCRINE: Denies any polyuria or polydipsia. The rest of the 14-point review of systems is negative. Past Medical History Past Medical History: Hyperlipidemia, Hypertension, Osteoarthritis (OA), Thyroid Disorder Additional Past Medical History / Comment(s): sarcoidosis, dementia, scoliosis, chronic small vessel ischemia, DJD, 1st degree AV block, spinal stenosis, disc bulging History of Any Multi-Drug Resistant Organisms: None Reported Past Surgical History: Joint Replacement, Orthopedic Surgery Additional Past Surgical History / Comment(s): bilateral total knees, L4-5 fusion Additional Past Anesthesia/Blood Transfusion Reaction / Comment(s): na Smoking Status: Never smoker Past Alcohol Use History: None Reported Past Drug Use History: None Reported - Past Family History Father History Unknown: Yes Mother History Unknown: Yes Medications and Allergies Home Medications Medication Instructions Recorded Confirmed Type Levothyroxine Sodium [Synthroid] 25 mcg PO DAILY 07/25/24 02/19/25 History Liothyronine Sodium [Cytomel] 5 mcg PO DAILY 07/25/24 02/19/25 History Losartan Potassium [Cozaar] 100 mg PO DAILY 02/19/25 02/19/25 History Meloxicam [Mobic] 15 mg PO DAILY PRN 02/19/25 02/19/25 History Montelukast [Singulair] 10 mg PO DAILY 02/19/25 02/19/25 History Allergies Allergy/AdvReac Type Severity Reaction Status Date / Time sertraline [From Zoloft] Allergy Hallucinati Verified 02/19/25 14:00 ons levofloxacin [From Levaquin] AdvReac Swelling Verified 02/19/25 14:00 Physical Exam Vitals: Vital Signs Temp Pulse Pulse Resp BP BP BP 02/20/25 13:13 97.5 F L 91 16 134/85 02/20/25 07:29 97.6 F 90 18 155/77 02/20/25 01:42 98 F 89 16 150/70 02/19/25 18:42 98.0 F 91 20 188/80 02/19/25 18:08 98.4 F 89 18 111/89 02/19/25 16:26 84 18 154/91 02/19/25 15:48 87 18 161/90 02/19/25 14:54 86 18 192/103 Pulse Ox 02/20/25 13:13 95 02/20/25 07:29 96 02/20/25 01:42 95 02/19/25 18:42 97 02/19/25 18:08 95 02/19/25 16:26 95 02/19/25 15:48 94 L 02/19/25 14:54 97 Intake and Output 02/19/25 02/20/25 02/20/25 22:59 06:59 14:59 Other: Voiding Method Toilet Toilet Diaper Diaper # Voids 3 Weight 63.503 kg General appearance: alert, in no apparent distress Head exam: Present: atraumatic, normocephalic, normal inspection Respiratory exam: Present: normal lung sounds bilaterally. Absent: respiratory distress, wheezes, rales, rhonchi, stridor Cardiovascular Exam: Present: regular rate, normal rhythm Neurological exam: Present: alert, oriented X3, CN II-XII intact Expanded Cerebellar function: Finger to Nose: Normal, Heel to Limon: Normal, Romberg: Normal Motor strength exam: RUE: 5, LUE: 5, RLE: 5, LLE: 5 Psychiatric exam: Present: normal affect, normal mood Skin exam: Present: warm, dry, intact, normal color. Absent: rash Results CBC & Chem 7: 02/19/25 12:14 02/19/25 12:14 Labs: Abnormal Lab Results - Last 24 Hours (Table) 02/19/25 Range/Units 15:08 Urine Appearance Cloudy H (Clear) Urine Ketones 1+ H (Negative) Urine Mucus Rare H (None) /hpf Thrombosis Risk Factor Assmnt - Choose All That Apply Each Risk Factor Represents 3 Points: Age 75 years or older Thrombosis Risk Factor Assessment Total Risk Factor Score: 3 Thrombosis Risk Factor Assessment Level: Moderate Risk Assessment and Plan Assessment: 1. Altered mental status; likely polypharmacy/dehydration -CT of the head was negative; blood work reveals slight elevation in BUN of 22 - Patient has been placed on IV fluid - Consult neurology 2. Mild GELACIO; dehydration; BUN slightly elevated - Patient has been placed on IV fluid; monitor strict GURU's, daily weight; avoid nephrotoxins and hypotension 3. Adult failure to thrive/debility; PT/OT and case management consult 4. Hypothyroidism; levothyroxine 25 mcg daily; Cytomel 5 mcg daily 5. Hypertension; Cozaar 100 mg daily 6. Asthma; not in exacerbation; continue with home inhaler therapy 7. Gastroesophageal reflux disease; continue with PPI
[2025-02-21 07:40] LABS: Basophils % (A) 1.3 %; Eosinophils # (A) 0.25 10*3/uL (0.04-0.35); Eosinophils % (A) 3.3 %; HCT 46.2 % (37.2-46.3); HGB 15.4 g/dL (12.0-15.0); Lymphocytes # (A) 1.73 10*3/uL (0.90-5.00); Lymphocytes % (A) 23.2 %; MCH 32.6 pg (27.0-32.0); MCHC 33.3 g/dL (32.0-37.0); MCV 97.9 fL (80.0-97.0); Mean Platelet Volume 10.3 fL (9.5-12.2); Monocytes # (A) 1.12 10*3/uL (0.20-1.00); Neutrophils # (A) 4.22 10*3/uL (1.80-7.70); Neutrophils % (A) 56.5 %; Platelet Count 265 10*3/uL (140-440); RBC 4.72 10*6/uL (4.10-5.20); RDW 12.4 % (11.5-14.5); WBC 7.47 10*3/uL (4.50-10.00)
[2025-02-21 08:01] LABS: African American GFR (CKD) >90 (>60 ml/min/1.73 sqM); Anion Gap 9 mmol/L; Blood Urea Nitrogen 27 mg/dL (7-17); Calcium 9.9 mg/dL (8.4-10.2); Carbon Dioxide 20 mmol/L (22-30); Chloride 104 mmol/L (98-107); Glucose 95 mg/dL (74-99); Non-African American GFR(CKD) 85 (>60 ml/min/1.73 sqM); Potassium 4.2 mmol/L (3.5-5.1); Sodium 133 mmol/L (137-145)
[2025-02-21] MEDS: ACETAMINOPHEN TAB 325 MG TAB PO PRN (08:55)
[2025-02-21 09:08] LABS: Vitamin B12 >3600.0 pg/mL (200.0-944.0)
--- NOTE | 2025-02-21 16:49 | P.PN ---
Subjective Progress Note Date: 02/21/25 84-year-old female who presents to the emergency department for weakness and confusion. Patient states that she fell 2 days ago and hurt her lower back. She was on the floor for a couple of hours because she did not have the energy to get up. Does report feeling somewhat weak. Her daughter states that she has been very disoriented and confused. States that she does not make sense when she is speaking and yesterday appeared to be slurring her words. She also advised that she is not eating. Patient states that she just does not feel like eating. Denies any nausea/vomiting or abdominal pain. Her daughter states that she has never acted like this before. CT scan of the brain was performed. There was no reported evidence of acute hemorrhage or infarct. Chest x-ray revealed bilateral atelectasis. Laboratory evaluation revealed an elevated hemoglobin of 15.6. White count is normal. BUN is elevated at 22 with a creatinine of 0.72. Sodium is slightly low at 133. Urine drug screen is negative. Urinalysis is negative. Objective - Vital Signs Vital signs: Vital Signs Temp 97.7 F 02/21/25 07:27 Pulse 89 02/21/25 07:27 Resp 17 02/21/25 07:27 BP 146/82 02/21/25 07:27 Pulse Ox 95 02/21/25 07:27 FiO2 Intake & Output 02/20/25 02/21/25 02/21/25 18:59 06:59 18:59 Intake Total 780 Balance 780 Intake: Oral 780 Other: Voiding Method Toilet Toilet Toilet Diaper Diaper Diaper # Voids 4 3 # Bowel Movements 1 - Exam General appearance: alert, in no apparent distress Head exam: Present: atraumatic, normocephalic, normal inspection Respiratory exam: Present: normal lung sounds bilaterally. Absent: respiratory distress, wheezes, rales, rhonchi, stridor Cardiovascular Exam: Present: regular rate, normal rhythm Neurological exam: Present: alert, oriented X3, CN II-XII intact Expanded Cerebellar function: Finger to Nose: Normal, Heel to Limon: Normal, Romberg: Normal Motor strength exam: RUE: 5, LUE: 5, RLE: 5, LLE: 5 Psychiatric exam: Present: normal affect, normal mood Skin exam: Present: warm, dry, intact, normal color. Absent: rash - Labs CBC & Chem 7: 02/21/25 07:05 02/21/25 07:09 Labs: Abnormal Lab Results - Last 24 Hours (Table) 02/20/25 02/20/25 02/21/25 Range/Units 11:04 11:04 07:05 Hgb 15.4 H (12.0-15.0) g/dL MCV 97.9 H (80.0-97.0) fL MCH 32.6 H (27.0-32.0) pg Immature Gran # 0.05 H (0.00-0.04) 10*3/uL Monocytes # 1.12 H (0.20-1.00) 10*3/uL Sodium (137-145) mmol/L Carbon Dioxide (22-30) mmol/L BUN (7-17) mg/dL Vitamin B12 >3600.0 H (200.0-944.0) pg/mL Folate 35.50 H (4.40-31.00) ng/mL 02/21/25 Range/Units 07:09 Hgb (12.0-15.0) g/dL MCV (80.0-97.0) fL MCH (27.0-32.0) pg Immature Gran # (0.00-0.04) 10*3/uL Monocytes # (0.20-1.00) 10*3/uL Sodium 133 L (137-145) mmol/L Carbon Dioxide 20 L (22-30) mmol/L BUN 27 H (7-17) mg/dL Vitamin B12 (200.0-944.0) pg/mL Folate (4.40-31.00) ng/mL Assessment and Plan Assessment: 1. Altered mental status; likely polypharmacy/dehydration -CT of the head was negative; blood work reveals slight elevation in BUN of 22 - Patient has been placed on IV fluid - Consult neurology 2. Mild GELACIO; dehydration; BUN slightly elevated - Patient has been placed on IV fluid; monitor strict GURU's, daily weight; avoid nephrotoxins and hypotension 3. Adult failure to thrive/debility; PT/OT and case management consult 4. Hypothyroidism; levothyroxine 25 mcg daily; Cytomel 5 mcg daily 5. Hypertension; Cozaar 100 mg daily 6. Asthma; not in exacerbation; continue with home inhaler therapy 7. Gastroesophageal reflux disease; continue with PPI
--- NOTE | 2025-02-22 22:01 | P.PN ---
Subjective Progress Note Date: 02/22/25 84-year-old female who presents to the emergency department for weakness and confusion. Patient states that she fell 2 days ago and hurt her lower back. She was on the floor for a couple of hours because she did not have the energy to get up. Does report feeling somewhat weak. Her daughter states that she has been very disoriented and confused. States that she does not make sense when she is speaking and yesterday appeared to be slurring her words. She also advised that she is not eating. Patient states that she just does not feel like eating. Denies any nausea/vomiting or abdominal pain. Her daughter states that she has never acted like this before. CT scan of the brain was performed. There was no reported evidence of acute hemorrhage or infarct. Chest x-ray revealed bilateral atelectasis. Laboratory evaluation revealed an elevated hemoglobin of 15.6. White count is normal. BUN is elevated at 22 with a creatinine of 0.72. Sodium is slightly low at 133. Urine drug screen is negative. Urinalysis is negative. 02/22/2025 Patient is seen in follow-up today continues with generalized weakness and confusion. Family at the bedside reports she has been falling more frequently and more weak most recently continues to be disoriented and not eating well. Patient will have dietary evaluate the patient and recommend Ensure supplements between meals and encouraged increase activity as tolerated as well as continuing to encourage small frequent meals. Per daughter at the bedside planning on possible ECF for continued strength and mobility. Patient does have underlying dementia as well. Family feels patient is not safe in the home given her ongoing progressive weakness and high risk of falls and possible fracturing her hips. Will have PT/OT therapy evaluate the patient and social work is consulted for possible ECF. Review of systems: Constitutional: No reports of fatigue, fever, or chills Cardiovascular: No reports of chest pain or palpitations Respiratory: No reports of shortness of breath or cough GI: No reports of nausea, vomiting, or diarrhea, reports not much of an appetite : No reports of dysuria or retention Neurovascular: reports of generalized weakness and reports not walking much All medications have been reviewed Physical exam: Gen: This is a 84-year-old female who is awake, alert and oriented x 1-2, well- developed, elderly appearing, thin built HEENT: Head is atraumatic, normocephalic. Pupils equal, round. Sclerae is anicteric. NECK: Supple. No JVD. No lymphadenopathy. No thyromegaly. LUNGS: Diminished breath sounds bilaterally otherwise clear to auscultation. No wheezes or rhonchi. No intercostal retractions. HEART: S1, S2 are muffled ABDOMEN: Soft. Thin. Bowel sounds are present. No masses. No tenderness. EXTREMITIES: No pedal edema. No calf tenderness. NEUROLOGICAL: Patient is awake, alert and oriented x 12. Cranial nerves 2 through 12 are grossly intact. Diffusely weak Assessment: -Altered mental status; likely polypharmacy/dehydration, improving and at baseline -Mild GELACIO; secondary to dehydration and poor oral intake -Adult failure to thrive/debility -Dementia -Hypothyroidism -Hypertension -Moderate protein calorie malnutrition with a BMI of 22.6 -Asthma; not in exacerbation -Gastroesophageal reflux disease - Generalized weakness and gait dysfunction with frequent falls -GI prophylaxis -DVT prophylaxis -Full code Plan: Patient is admitted for generalized weakness with recurrent falls and altered me ntation although is at baseline per family. Patient has been falling more frequently recently and family is concerned she is extremely weak and not eating well. Patient with history of dementia concerns for progression Patient was independent prior to this and per daughter at the bedside this is no t how she behaves normally. Patient has been steadily declining over the last few months Recommending ECF and awaiting updated PT/OT therapy notes. Social work is following and patient will require 3 night hospitalization according to Medicare guidelines. Patient was made observation and will flip to inpatient as patient will be going to ECF on discharge Continue to reorient and keep the blinds open during the day with frequent reorientation with family May use Seroquel as needed as needed at night Home medications reviewed and resumed as appropriate Social work is following working on excepting ECF and will be able to discharge approximately 02/24/2025 according to Medicare guidelines The impression and plan of care has been dictated by Maricruz Sheikh Nurse Practitioner as directed. Dr. Bran MD I have performed a history and examination and MDM of this patient, discussed the same with the dictator, and agree with the dictator's assessment and plan as written ,documented as a scribe. Based on total visit time, I have performed more than 50% of the visit. Objective - Vital Signs Vital signs: Vital Signs Temp 97.6 F 02/22/25 06:58 Pulse 79 02/22/25 06:58 Resp 16 02/22/25 06:58 BP 158/56 02/22/25 06:58 Pulse Ox 96 02/22/25 02:00 FiO2 Intake & Output 02/21/25 02/22/25 02/22/25 18:59 06:59 18:59 Intake Total 720 Balance 720 Intake: Oral 720 Other: Voiding Method Toilet Toilet Diaper Diaper # Voids 4 2 - Labs CBC & Chem 7: 02/21/25 07:05 02/21/25 07:09
--- NOTE | 2025-02-23 08:03 | P.PN ---
Subjective Progress Note Date: 02/22/25 Patient was initially seen by Dr. Trejo. Please refer to her note for details. Patient is a 84-year-old female admitted with confusion and weakness. Per , there is concern that patient may have taken too much pain medications. Patient at present states that she is doing well. Patient denies any headache. No dizziness or shortness of breath. Patient's believes that she is back to her baseline. Patient does have history of dementia. Objective - Vital Signs Vital signs: Vital Signs Temp 97.5 F L 02/22/25 11:36 Pulse 84 02/22/25 11:36 Resp 16 02/22/25 11:36 BP 112/70 02/22/25 11:36 Pulse Ox 95 02/22/25 11:36 FiO2 Intake & Output 02/21/25 02/22/25 02/22/25 18:59 06:59 18:59 Intake Total 720 1080 Balance 720 1080 Intake: Oral 720 1080 Other: Voiding Method Toilet Toilet Diaper Diaper # Voids 4 2 0 # Bowel Movements 1 - Exam On examination patient is alert and awake in no distress. Patient knows it is [facility] in [place]. She could not tell what city [facility] is in. She knows that she lives in [facility] and Alexis is the president. Patient states it is 02/24/2025. Patient does have visuospatial apraxia and mildly positive palmomental reflex on the left. Muscle strength appears fairly normal. Face is symmetric. - Labs CBC & Chem 7: 02/21/25 07:05 02/21/25 07:09 Assessment and Plan Assessment: 1. Altered mental status, possibly secondary to excessive use of pain medications versus dehydration versus infection 2. Reported progressing, memory loss 3. Frequent falls 4. Chronic back pain 5. History of sarcoidosis 6. History of reported poor appetite 7. History of severe lumbar spinal stenosis at L3-L4 level. 8. History of cervical spondylosis. Plan: 1. Hold narcotic and sedative medications. Patient's believes that her mentation is back to baseline. 2. Increase fluids 3. Consider social work consultation regarding discharge plan 4. Speech therapy consultation regarding reported slurred speech 5. B12 > 3600, folate 35.5, TSH 0.854. Sodium 133. UA negative. 6. Neurologically clear, if cleared medically.
--- NOTE | 2025-02-24 04:46 | P.PN ---
Subjective Progress Note Date: 02/23/25 84-year-old female who presents to the emergency department for weakness and confusion. Patient states that she fell 2 days ago and hurt her lower back. She was on the floor for a couple of hours because she did not have the energy to get up. Does report feeling somewhat weak. Her daughter states that she has been very disoriented and confused. States that she does not make sense when she is speaking and yesterday appeared to be slurring her words. She also advised that she is not eating. Patient states that she just does not feel like eating. Denies any nausea/vomiting or abdominal pain. Her daughter states that she has never acted like this before. CT scan of the brain was performed. There was no reported evidence of acute hemorrhage or infarct. Chest x-ray revealed bilateral atelectasis. Laboratory evaluation revealed an elevated hemoglobin of 15.6. White count is normal. BUN is elevated at 22 with a creatinine of 0.72. Sodium is slightly low at 133. Urine drug screen is negative. Urinalysis is negative. 02/22/2025 Patient is seen in follow-up today continues with generalized weakness and confusion. Family at the bedside reports she has been falling more frequently and more weak most recently continues to be disoriented and not eating well. Patient will have dietary evaluate the patient and recommend Ensure supplements between meals and encouraged increase activity as tolerated as well as continuing to encourage small frequent meals. Per daughter at the bedside planning on possible ECF for continued strength and mobility. Patient does have underlying dementia as well. Family feels patient is not safe in the home given her ongoing progressive weakness and high risk of falls and possible fracturing her hips. Will have PT/OT therapy evaluate the patient and social work is consulted for possible ECF. 02/23/2025 Patient is seen in follow-up today currently sitting up in the chair much more awake and alert today. Family is at the bedside and they are working with social work regarding discharge planning at an ECF near [facility] where daughter resides to be close to family. Patient currently accepted pending 3 night Medicare hospitalization stay. Patient will be planning on discharge on 02/25/2025. Patient is afebrile with no reports of chest pain or shortness of breath. Patient is tolerating diet and has been agreeable with working with PT. Review of systems: Constitutional: No reports of fatigue, fever, or chills Cardiovascular: No reports of chest pain or palpitations Respiratory: No reports of shortness of breath or cough GI: No reports of nausea, vomiting, or diarrhea, reports not much of an appetite : No reports of dysuria or retention Neurovascular: reports of generalized weakness and reports not walking much All medications have been reviewed Physical exam: Gen: This is a 84-year-old female who is awake, alert and oriented x 1-2, well- developed, elderly appearing, thin built HEENT: Head is atraumatic, normocephalic. Pupils equal, round. Sclerae is anicteric. NECK: Supple. No JVD. No lymphadenopathy. No thyromegaly. LUNGS: Diminished breath sounds bilaterally otherwise clear to auscultation. No wheezes or rhonchi. No intercostal retractions. HEART: S1, S2 are muffled ABDOMEN: Soft. Thin. Bowel sounds are present. No masses. No tenderness. EXTREMITIES: No pedal edema. No calf tenderness. NEUROLOGICAL: Patient is awake, alert and oriented x 12. Cranial nerves 2 through 12 are grossly intact. Diffusely weak Assessment: -Altered mental status; likely polypharmacy/dehydration, improving and at baseline -Mild GELACIO; secondary to dehydration and poor oral intake -Adult failure to thrive/debility -Dementia history -Hypothyroidism -Hypertension -Moderate protein calorie malnutrition with a BMI of 22.6 -Asthma; not in exacerbation -Gastroesophageal reflux disease -Generalized weakness and gait dysfunction with frequent falls -GI prophylaxis -DVT prophylaxis -Full code Plan: Patient is admitted for generalized weakness with recurrent falls and altered mentation although is at baseline per family. Patient has been falling more frequently recently and family is concerned she is extremely weak and not eating well. Patient with history of dementia concerns for progression Patient was independent prior to this and per daughter at the bedside this is not how she behaves normally. Patient has been steadily declining over the last few months Recommending ECF and awaiting updated PT/OT therapy notes. Social work is following and patient will require 3 night hospitalization according to Medicare guidelines. Patient was made observation and will flip to inpatient as patient will be going to ECF on discharge Continue to reorient and keep the blinds open during the day with frequent reorientation with family May use Seroquel as needed as needed at night Home medications reviewed and resumed as appropriate Social work is following working on accepting ECF in [facility] and will be able to discharge approximately 02/25/2025 according to Medicare guidelines The impression and plan of care has been dictated by Maricruz Sheikh, Nurse Practitioner as directed. Dr. Bran MD I have performed a history and examination and MDM of this patient, discussed the same with the dictator, and agree with the dictator's assessment and plan as written ,documented as a scribe. Based on total visit time, I have performed more than 50% of the visit. Objective - Vital Signs Vital signs: Vital Signs Temp 98.0 F 02/23/25 07:25 Pulse 94 02/23/25 07:25 Resp 16 02/23/25 07:25 BP 124/73 02/23/25 07:25 Pulse Ox 96 02/23/25 07:25 FiO2 Intake & Output 02/22/25 02/23/25 02/23/25 18:59 06:59 18:59 Intake Total 1080 Balance 1080 Intake: Oral 1080 Other: Voiding Method Toilet Diaper # Voids 0 2 # Bowel Movements 1 - Labs CBC & Chem 7: 02/21/25 07:05 02/21/25 07:09
--- NOTE | 2025-02-25 05:40 | P.PN ---
Subjective Progress Note Date: 02/24/25 84-year-old female who presents to the emergency department for weakness and confusion. Patient states that she fell 2 days ago and hurt her lower back. She was on the floor for a couple of hours because she did not have the energy to get up. Does report feeling somewhat weak. Her daughter states that she has been very disoriented and confused. States that she does not make sense when she is speaking and yesterday appeared to be slurring her words. She also advised that she is not eating. Patient states that she just does not feel like eating. Denies any nausea/vomiting or abdominal pain. Her daughter states that she has never acted like this before. CT scan of the brain was performed. There was no reported evidence of acute hemorrhage or infarct. Chest x-ray revealed bilateral atelectasis. Laboratory evaluation revealed an elevated hemoglobin of 15.6. White count is normal. BUN is elevated at 22 with a creatinine of 0.72. Sodium is slightly low at 133. Urine drug screen is negative. Urinalysis is negative. 02/22/2025 Patient is seen in follow-up today continues with generalized weakness and confusion. Family at the bedside reports she has been falling more frequently and more weak most recently continues to be disoriented and not eating well. Patient will have dietary evaluate the patient and recommend Ensure supplements between meals and encouraged increase activity as tolerated as well as continuing to encourage small frequent meals. Per daughter at the bedside planning on possible ECF for continued strength and mobility. Patient does have underlying dementia as well. Family feels patient is not safe in the home given her ongoing progressive weakness and high risk of falls and possible fracturing her hips. Will have PT/OT therapy evaluate the patient and social work is consulted for possible ECF. 02/23/2025 Patient is seen in follow-up today currently sitting up in the chair much more awake and alert today. Family is at the bedside and they are working with social work regarding discharge planning at an ECF near [facility] where daughter resides to be close to family. Patient currently accepted pending 3 night Medicare hospitalization stay. Patient will be planning on discharge on 02/25/2025. Patient is afebrile with no reports of chest pain or shortness of breath. Patient is tolerating diet and has been agreeable with working with PT. 02/24/2025 Patient is seen in follow-up this morning with no acute overnight issues noted. Patient continues with weakness and will be going to F on discharge. Social work following and planning on discharge on 02/25/2025 as patient required 3 night hospitalization according to Medicare guidelines. Patient is afebrile with no reports of chest pain or shortness of breath. Patient has been tolerating diet and attempting to eat a little more. Will continue with boost supplements between meals and encouraged increase activity as tolerated. Review of systems: Constitutional: No reports of fatigue, fever, or chills Cardiovascular: No reports of chest pain or palpitations Respiratory: No reports of shortness of breath or cough GI: No reports of nausea, vomiting, or diarrhea, reports not much of an appetite : No reports of dysuria or retention Neurovascular: reports of generalized weakness and reports not walking much All medications have been reviewed Physical exam: Gen: This is a 84-year-old female who is awake, alert and oriented x 1-2, well- developed, elderly appearing, thin built HEENT: Head is atraumatic, normocephalic. Pupils equal, round. Sclerae is anicteric. NECK: Supple. No JVD. No lymphadenopathy. No thyromegaly. LUNGS: Diminished breath sounds bilaterally otherwise clear to auscultation. No wheezes or rhonchi. No intercostal retractions. HEART: S1, S2 are muffled ABDOMEN: Soft. Thin. Bowel sounds are present. No masses. No tenderness. EXTREMITIES: No pedal edema. No calf tenderness. NEUROLOGICAL: Patient is awake, alert and oriented x 12. Cranial nerves 2 through 12 are grossly intact. Diffusely weak Assessment: -Altered mental status; acute toxic/metabolic encephalopathy, likely polypharmacy/dehydration, improving and at baseline -Mild GELACIO; secondary to dehydration and poor oral intake -Adult failure to thrive/debility -Dementia history -Hypothyroidism -Hypertension -Moderate protein calorie malnutrition with a BMI of 22.6 -Asthma; not in exacerbation -Gastroesophageal reflux disease -Generalized weakness and gait dysfunction with frequent falls -GI prophylaxis -DVT prophylaxis -Full code Plan: Patient is admitted for generalized weakness with recurrent falls and altered mentation although is at baseline per family. Patient has been falling more frequently recently and family is concerned she is extremely weak and not eating well. Patient with history of dementia concerns for progression Patient was independent prior to this and per daughter at the bedside this is not how she behaves normally. Patient has been steadily declining over the last few months Recommending ECF and awaiting updated PT/OT therapy notes. Social work is following and patient will require 3 night hospitalization according to Medicare guidelines. Continue to reorient and keep the blinds open during the day with frequent reorientation with family May use Seroquel as needed as needed at night Home medications reviewed and resumed as appropriate Social work is following working on accepting ECF in [facility] and will be able to discharge tomorrow 02/25/2025 according to Medicare guidelines The impression and plan of care has been dictated by Maricruz Sheikh, Nurse Practitioner as directed. Dr. Bran MD I have performed a history and examination and MDM of this patient, discussed the same with the dictator, and agree with the dictator's assessment and plan as written ,documented as a scribe. Based on total visit time, I have performed more than 50% of the visit. Objective - Vital Signs Vital signs: Vital Signs Temp 97.7 F 02/24/25 07:12 Pulse 91 02/24/25 07:12 Resp 20 02/24/25 07:12 BP 154/81 02/24/25 07:12 Pulse Ox 96 02/24/25 07:12 FiO2 Intake & Output 02/23/25 02/24/25 02/24/25 18:59 06:59 18:59 Intake Total 600 Balance 600 Intake: Oral 600 Other: Voiding Method Toilet Toilet Toilet Diaper Diaper Diaper # Voids 4 2 1 - Labs CBC & Chem 7: 02/21/25 07:05 02/21/25 07:09
[2025-02-25 08:08] VITALS: RESP 18
--- NOTE | 2025-02-25 10:24 | P.DS ---
Providers Date of admission: 02/22/25 12:39 Expected date of discharge: 02/25/25 Attending physician: Elroy Conteh Consults: 02/19/25 17:17 Consult Physician Urgent Consulting Provider: Gus Villasenor Consult Reason/Comments: Confusion, slurred speech Do you want consulting provider notified?: Yes Primary care physician: Vicente Plascencia Hospital Course: Final diagnosis -Altered mental status; acute toxic/metabolic encephalopathy, likely polypharmacy/dehydration, improving and at baseline -Mild GELACIO; secondary to dehydration and poor oral intake -Adult failure to thrive/debility -Dementia history -Hypothyroidism -Hypertension -Moderate protein calorie malnutrition with a BMI of 22.6 -Asthma; not in exacerbation -Gastroesophageal reflux disease -Generalized weakness and gait dysfunction with frequent falls -GI prophylaxis -DVT prophylaxis -Full code Discharge disposition Patient is being discharged in a stable condition with guarded prognosis to [facility]. Patient will follow-up with Dr. Plascencia in the outpatient setting upon discharge. Patient is to continue with current medications as prescribed. Recommend limiting narcotic use given patient's age and mentation. Total time taken is greater than 35 minutes. Hospital course This is a 84-year-old female who was recently admitted with increasing falls and generalized weakness with difficulty in ambulation and not eating very well being closely monitored. Patient's family concerned as she has been falling more frequently normally is independent although mostly recently has been not eating as well and having increased falls in the home. Patient was evaluated by PT/OT therapy and is agreeable to rehab. Case management/social work following and son to have multiple referrals and [facility] has accepted the patient. Patient does have history of dementia and apparently there is a long-term memory care unit available at the [facility]. Patient with gen eralized weakness has been up and working with physical therapy and doing well and recommend to continue as patient again was independent prior to this. Patient required 3 night hospitalizations according to Medicare guidelines and will be discharged today. Currently no reports of chest pain, shortness of breath, or palpitations. Patient is afebrile. No reports of nausea or vomiting and patient is tolerating diet. Patient will be going to [facility] today. Physical exam: Gen: This is a 84-year-old female who is awake, alert and oriented x 2, baseline, well-developed, elderly appearing, thin built HEENT: Head is atraumatic, normocephalic. Pupils equal, round. Sclerae is anicteric. NECK: Supple. No JVD. No lymphadenopathy. No thyromegaly. LUNGS: Diminished breath sounds bilaterally otherwise clear to auscultation. No wheezes or rhonchi. No intercostal retractions. HEART: S1, S2 are muffled ABDOMEN: Soft. Thin. Bowel sounds are present. No masses. No tenderness. EXTREMITIES: No pedal edema. No calf tenderness. NEUROLOGICAL: Patient is awake, alert and oriented x to. Cranial nerves 2 through 12 are grossly intact. Please refer to medication reconciliation sheet for a list of medications. The impression and plan of care has been dictated by Maricruz Sheikh, Nurse Practitioner as directed. Dr. Bran MD I have performed a history and examination and MDM of this patient, discussed the same with the dictator, and agree with the dictator's assessment and plan as written ,documented as a scribe. Based on total visit time, I have performed more than 50% of the visit. Patient Condition at Discharge: Stable Plan - Discharge Summary Discharge Rx Participant: No New Discharge Prescriptions: New Acetaminophen Tab [Tylenol] 650 mg PO Q6HR PRN tab PRN Reason: Mild Pain Or Fever > 100.5 Continue Liothyronine Sodium [Cytomel] 5 mcg PO DAILY Levothyroxine Sodium [Synthroid] 25 mcg PO DAILY Montelukast [Singulair] 10 mg PO DAILY Meloxicam [Mobic] 15 mg PO DAILY PRN PRN Reason: Pain Losartan Potassium [Cozaar] 100 mg PO DAILY Discharge Medication List Levothyroxine Sodium [Synthroid] 25 mcg PO DAILY 07/25/24 [History] Liothyronine Sodium [Cytomel] 5 mcg PO DAILY 07/25/24 [History] Losartan Potassium [Cozaar] 100 mg PO DAILY 02/19/25 [History] Meloxicam [Mobic] 15 mg PO DAILY PRN 02/19/25 [History] Montelukast [Singulair] 10 mg PO DAILY 02/19/25 [History] Acetaminophen Tab [Tylenol] 650 mg PO Q6HR PRN tab 02/25/25 [Rx] Follow up Appointment(s)/Referral(s): Temo,Vicente M, DO [Primary Care Provider] - 1-2 days Activity/Diet/Wound Care/Special Instructions: Patient is going to ECF Activity as tolerated Follow-up with primary care provider on discharge Continue to encourage small frequent meals Continue boost supplements 3 times daily between meals Discharge Disposition: TRANSFER TO SNF/ECF
[2025-02-25 12:47] VITALS: TEMP 97.7
[2025-02-25 13:12] VITALS: BP 151/79; PULSE 85
== END 2025-02-25 16:01 | DRG 682 ==
LOC: EC 11:26 → 5NMEDONC 16:59 → OBSVTOIN 02-22 12:39
PROVIDERS: ADMIT Hospitalist; ATTEND Hospitalist
DX: N17.9 Acute kidney failure, unspecified (principal); G92.8 Other toxic encephalopathy; G93.41 Metabolic encephalopathy; E44.0 Moderate protein-calorie malnutrition; R62.7 Adult failure to thrive; E86.0 Dehydration; F03.90 Unspecified dementia, unspecified severity, without behavioral disturbance, psychotic disturbance, mood disturbance, and anxiety; E03.9 Hypothyroidism, unspecified; I10 Essential (primary) hypertension; J45.909 Unspecified asthma, uncomplicated; R29.6 Repeated falls; D86.9 Sarcoidosis, unspecified; T50.915A Adverse effect of multiple unspecified drugs, medicaments and biological substances, initial encounter; R47.81 Slurred speech; K21.9 Gastro-esophageal reflux disease without esophagitis; W19.XXXA Unspecified fall, initial encounter; Z74.8 Other problems related to care provider dependency; Z68.22 Body mass index [BMI] 22.0-22.9, adult; Z91.81 History of falling; Z79.890 Hormone replacement therapy; Z79.899 Other long term (current) drug therapy
CPT/HCPCS: 36415; 70450; 71046; 72070; 72100; 80048; 80053; 81001; 82140; 82550; 82607; 82746; 83605; 83735; 84443; 84484; 85025; 85610; 85730; 93005; 96360; 96361; 99285